=== PATIENT | female | born 1965 | race African-American/Black ===

== ENCOUNTER → 2016-06-10 | Outpatient (CLI) | payer OTHER ==
[2016-05-24 10:35] VITALS: BP 132/82
[~2016-06-10] MED LIST: ACET-704 PO; AMLO10TA2 PO; BARIUM SULFATE 60% 355 ML SUSP PO ONE; BARIUM SULFATE 98% 135 ML SUSP PO ONE; CHOL500016 PO; CITA20TA9 PO; CYCL10TA2 PO; DOXY100C14 PO; ESTR2TAB PO; FURO20TA3 PO; GUAI-42 PO; HYDR-2672 PO; HYDR25TA9 PO; IPRA3AMP NEB; LOSA100T6 PO; MELO-150 PO; MONT10TA9 PO; PRED-220 PO; PREG150C PO; RAMI10CA PO; SOTA120T7 PO; TIZA4TAB PO; TRAM50TA PO; [UNRECOGNIZED DRUG - CODE] IM
--- NOTE | 2016-06-10 11:45 | RAD ---
Upper GI with small bowel follow-through, 06/10/2016: History: Abdominal pain and reflux The preliminary abdominal image demonstrates a nonspecific gas pattern. Surgical sutures and clips are present in the abdomen. There is evidence of previous lower lumbar surgery and instrumentation. The study was performed utilizing liquid barium and gas-forming crystals. 2.8 minutes of fluoroscopy time was utilized. 21 static and dynamic fluoroscopic sequences were recorded. The swallowing mechanism is intact. The esophageal peristalsis is normal. There has been a previous partial gastrectomy with gastrojejunostomy. There is prompt passage of the barium through the anastomotic site into the small bowel. There is no evidence of marginal ulceration. The gastroesophageal junction is patulous with reflux of barium and gas in the distal esophagus during the study. The small bowel loops are of normal caliber with no evidence of thickening of their folds. There was prompt passage of the barium through the small bowel reaching the cecum at 20 minutes. The terminal ileum is unremarkable. IMPRESSION: 1. Status post partial gastrectomy and gastrojejunostomy. 2. Patulous gastroesophageal junction with intermittent reflux into the distal esophagus. 3. No significant small bowel abnormality is detected.
== END | disposition home or self-care (01) ==
LOC: RAD 08:32
PROVIDERS: ATTEND Internal Medicine Gastroenterology
DX: K21.9 Gastro-esophageal reflux disease without esophagitis (principal); R10.9 Unspecified abdominal pain; Z90.3 Acquired absence of stomach [part of]
CPT/HCPCS: 74249

== ENCOUNTER → 2016-10-06 | Outpatient (CLI) | payer OTHER ==
[2016-05-24 10:35] VITALS: BP 132/82
[~2016-10-06] MED LIST changes: -BARIUM SULFATE 60% 355 ML SUSP PO ONE; -BARIUM SULFATE 98% 135 ML SUSP PO ONE; +CYCL-331 PO; -CYCL10TA2 PO; +GUAI-107 PO; -GUAI-42 PO; -HYDR-2672 PO; +HYDR-2766 PO; -MELO-150 PO; +MELO15TA23 PO
--- NOTE | 2016-10-06 17:36 | RAD ---
Chest, 2 views, 10/06/2016: History: Shortness of breath, productive cough, congestion Comparison is made to a study from 05/22/2016. The left ventricle is mildly prominent. There are mild bilateral linear opacities which have worsened since the previous study. The findings suggest multifocal linear atelectasis, although there may be a component of scarring. No dense consolidation is seen. There is no evidence of pleural fluid. IMPRESSION: Moderate linear atelectasis in both lungs.
== END | disposition home or self-care (01) ==
LOC: DXRADRC 14:03
PROVIDERS: ATTEND Internal Medicine
DX: R05 Cough (principal); J98.11 Atelectasis; R09.89 Other specified symptoms and signs involving the circulatory and respiratory systems; R06.02 Shortness of breath
CPT/HCPCS: 71020

== ENCOUNTER → 2016-10-21 | Outpatient (CLI) | payer OTHER ==
[2016-05-24 10:35] VITALS: BP 132/82
--- NOTE | 2016-10-21 14:56 | RAD ---
CT scan of the head without contrast 10/21/2016 Clinical history: Vertigo for 6 months with headaches and disorientation. Technique: Unenhanced, contiguous, 5 mm axial sections were obtained through the head. One or more of the following individualized dose reduction techniques were utilized for this study: 1. Automated exposure control. 2. Adjustment of the mA and/or kV according to patient size. 3. Use of iterative reconstruction technique. Findings: The ventricles and sulci are within normal limits in size and configuration. No area of abnormal attenuation is involving the brain parenchyma. No extra-axial fluid collection is seen. No skull fracture is noted. Impression: Negative study.
== END | disposition home or self-care (01) ==
LOC: CT 14:06
PROVIDERS: ATTEND Internal Medicine
DX: R51 Headache (principal); J45.909 Unspecified asthma, uncomplicated; I10 Essential (primary) hypertension; I48.91 Unspecified atrial fibrillation; R25.1 Tremor, unspecified; R42 Dizziness and giddiness
CPT/HCPCS: 70450

== ENCOUNTER 2017-12-01 14:10 | Observation (INO) | payer OTHER ==
[~2017-12-01] VITALS: Ht 152.4 cm; Wt 117.7 kg
[~2017-12-01 14:10] MED LIST changes: -AMLO10TA2 PO; +AMLO10TA6 PO; -GUAI-107 PO; +GUAI-108 PO; -IPRA3AMP NEB; +IPRA3AMP29 NEB; -LOSA100T6 PO; +LOSA100T7 PO; -RAMI10CA PO; +RAMI10CA53 PO
[2017-12-01] MEDS ORDERED: IV NORMAL SALINE 1,000ML 1,000 ML IV ONE ×2 (14:45→18:45)
[2017-12-01] MEDS ORDERED: HALOPERIDOL LACT 5 MG/ML VIAL. IM ONE (15:00)
--- NOTE | 2017-12-01 15:07 | PHYS DOC ---
Past History Past Medical History: A-Fib, Hypertension, Other Past Surgical History: , Gastric Bypass, Hysterectomy, Lumbar Laminectomy, Other Alcohol Use: None Drug Use: None Adult General Chief Complaint Chief Complaint: ALTERED MENTAL STATUS HPI HPI 52-year-old female presents via EMS with altered mental status. The patient was at her house where the police department was called. She stated that someone hacked into her cable and was watching her. The police found no problems with her cable. They discovered that the patient was not alert and oriented so they called EMS. EMS found the patient to not be oriented either. She has been having swings between being very angry and yelling about things to crying. Her speech is coherent, but the thing she is talking about does not of his neck since. EMS reported that she seemed to be paranoid about any interventions they wanted to do. She denies being crazy over no rebound. She complains of some left upper arm pain but will not allow anyone to touch it. She is unable to provide medical history or history of today's events. Review of Systems Review of Systems Constitutional: Denies fever or chills [] Eyes: Denies change in visual acuity, redness, or eye pain [] HENT: Denies nasal congestion or sore throat [] Respiratory: Denies cough or shortness of breath [] Cardiovascular: No additional information not addressed in HPI [] GI: Denies abdominal pain, nausea, vomiting, or diarrhea [] : Denies dysuria [] Musculoskeletal: Left upper arm pain[] Integument: Denies rash[] Neurologic: Denies headache, focal weakness or sensory changes [] Endocrine: Denies polyuria [] All other systems were reviewed and found to be within normal limits, except as documented in this note. Current Medications Current Medications Current Medications Medications (Trade) Dose Ordered Sig/Jessica Start Time Stop Time Status Last Admin Dose Admin Haloperidol Lactate (Haldol) 5 mg 1X ONCE 12/01/17 15:00 12/01/17 15:01 Sodium Chloride 1,000 ml @ 1,000 mls/hr 1X ONCE 12/01/17 14:45 12/01/17 15:44 Allergies Allergies Allergies Coded Allergies Type Severity Reaction Last Updated Verified adhesive Allergy Unknown 06/15/15 Yes adhesive tape Allergy Unknown 06/15/15 Yes latex Allergy Unknown 06/15/15 Yes propoxyphene Allergy Unknown 06/15/15 Yes Physical Exam Physical Exam Constitutional: Well developed, obese, well nourished, moderate distress, crying , yelling, non-toxic appearance. [] HENT: Normocephalic, atraumatic, bilateral external ears normal, oropharynx moist, no oral exudates, nose normal. [] Eyes: PERRLA, EOMI, conjunctiva normal, no discharge. [] Neck: Normal range of motion, no tenderness, supple, no stridor. [] Cardiovascular:Heart rate regular rhythm, no murmur [] Lungs & Thorax: Bilateral breath sounds clear to auscultation [] Abdomen: Bowel sounds normal, soft, no tenderness, no masses, no pulsatile masses. [] Skin: Warm, dry, no erythema, no rash. [] Back: No tenderness, no CVA tenderness. [] Extremities: No tenderness, no cyanosis, no clubbing, ROM intact, no edema. [] Neurologic: Alert and oriented to person and place only, no focal deficits noted. [] Psychologic: Affect paranoid, mood agitated, crying. [] Current Patient Data Vital Signs Vital Signs Date Time Temp Pulse Resp B/P (MAP) Pulse Ox O2 Delivery O2 Flow Rate FiO2 12/01/17 14:14 98.2 78 20 97 Room Air EKG EKG [] Radiology/Procedures Radiology/Procedures CT of the head without contrast, 12/01/2017: HISTORY: Altered mental status, combative behavior The patient's head is rotated. The ventricles are within normal limits in size. There is no shift of the midline structures. There is no evidence of acute intracranial hemorrhage or mass effect. IMPRESSION: No acute intracranial abnormality is detected. RS Compliance Statement: One or more of the following individualized dose reduction techniques were utilized for this examination: 1. Automated exposure control 2. Adjustment of the mA and/or kV according to patient size 3. Use of iterative reconstruction technique Electronically signed by: Patrice Currie MD (12/01/2017 5:10 PM) [facility] DICTATED AND SIGNED BY: PATRICE CURRIE MD DATE: 12/01/17 7547 CC: SHARON AVILA DO; RHIANNA STACY DO [] Course & Med Decision Making Course & Med Decision Making Pertinent Labs and Imaging studies reviewed. (See chart for details) The patient's head CT is unremarkable. Her labs are unremarkable. Her urine drug screen is only positive for opiates which we know she is on pain medication. Urinalysis is unremarkable. We have had conversations with the patient's family and they agree that she does not sound like herself and is very out of sorts. She has no mental health history. I do not have a cause for her delirium at this time. Family arrived and continues to be baffled by the patient's behavior. The patient is now sleeping soundly. This is likely due to a combination of just being worn out from being so agitated and the medications that we gave her. He has been stable throughout her ED visit. I discussed the case with Dr. Calderon and he has agreed to admit the patient for acute delirium. [] Dragon Disclaimer Dragon Disclaimer This electronic medical record was generated, in whole or in part, using a voice recognition dictation system. Departure Departure: Referrals: RHIANNA STACY DO (PCP) SHARON AVILA DO Dec 01, 2017 15:07
[2017-12-01] MEDS ORDERED: LORazepam 2 MG/ML VIAL IM ONE ×2 (15:15)
[2017-12-01 15:49] LABS: BASO # 0.1 x10^3/uL (0.0-0.2); BASO % 1 % (0-3); EOS # 0.2 x10^3/uL (0.0-0.7); EOS % 2 % (0-3); HEMATOCRIT 36.4 % (36.0-47.0); HEMOGLOBIN 11.7 g/dL (12.0-15.5); LYMPH # 1.7 x10^3/uL (1.0-4.8); LYMPH % 19 % (24-48); MEAN CORPUSCULAR HEMOGLOBIN 27 pg (25-35); MEAN CORPUSCULAR HGB CONC 32 g/dL (31-37); MEAN CORPUSCULAR VOLUME 83 fL (79-100); MONO # 0.4 x10^3/uL (0.0-1.1); MONO % 4 % (0-9); NEUT # 6.8 x10^3uL (1.8-7.7); NEUT % 74 % (31-73); PLATELET COUNT 361 x10^3/uL (140-400); RED BLOOD COUNT 4.39 x10^6/uL (3.50-5.40); WHITE BLOOD COUNT 9.2 x10^3/uL (4.0-11.0)
[2017-12-01 16:01] LABS: ALBUMIN 3.1 g/dL (3.4-5.0); ALBUMIN/GLOBULIN RATIO 0.6 (1.0-1.7); CALCIUM 9.4 mg/dL (8.5-10.1); CREATININE 1.3 mg/dL (0.6-1.0); GFR 51.6; POTASSIUM 3.7 mmol/L (3.5-5.1); TOTAL BILIRUBIN 0.4 mg/dL (0.2-1.0); TOTAL PROTEIN 8.3 g/dL (6.4-8.2)
[2017-12-01 17:01] LABS: BACTERIA,URINE FEW /HPF (0-FEW); BILIRUBIN,URINE NEG (NEG); CLARITY,URINE HAZY; COLOR,URINE YELLOW; GLUCOSE,URINE NEG (NEG); NITRITE,URINE NEG (NEG); RBC,URINE 0 /HPF (0-2); SQUAMOUS EPITHELIAL CELL,UR MANY /LPF; UROBILINOGEN,URINE 0.2 mg/dL (0.2 mg/dL); WBC,URINE RARE /HPF (0-4)
[2017-12-01 17:13] LABS: BARBITURATES NEG (NEG); BENZODIAZEPINES NEG (NEG); CANNABINOIDS NEG (NEG); COCAINE NEG (NEG); METHADONE NEG (NEG); OPIATES POS (NEG); PHENCYCLIDINE NEG (NEG)
--- NOTE | 2017-12-01 17:13 | RAD ---
CT of the head without contrast, 12/01/2017: HISTORY: Altered mental status, combative behavior The patient's head is rotated. The ventricles are within normal limits in size. There is no shift of the midline structures. There is no evidence of acute intracranial hemorrhage or mass effect. IMPRESSION: No acute intracranial abnormality is detected. RS Compliance Statement: One or more of the following individualized dose reduction techniques were utilized for this examination: 1. Automated exposure control 2. Adjustment of the mA and/or kV according to patient size 3. Use of iterative reconstruction technique Electronically signed by: Patrice Currie MD (12/01/2017 5:10 PM) [facility]
[2017-12-01 17:15] LABS: AMPHETAMINE/METHAMPHETAMINE NEG (NEG)
[2017-12-01] MEDS ORDERED: ONDANSETRON PF 4 MG/2 ML VIAL. IV PRN (18:45)
[2017-12-01] MEDS ORDERED: HALOPERIDOL LACT 5 MG/ML VIAL. IM PRN (18:45)
[2017-12-01 23:27] VITALS: BP 107/56
[2017-12-02 03:14] VITALS: BP 124/57
[2017-12-02 06:24] LABS: CALCIUM 8.9 mg/dL (8.5-10.1); CREATININE 0.9 mg/dL (0.6-1.0); POTASSIUM 3.9 mmol/L (3.5-5.1)
[2017-12-02 06:44] LABS: BASO # 0.1 x10^3/uL (0.0-0.2); BASO % 1 % (0-3); EOS # 0.2 x10^3/uL (0.0-0.7); EOS % 3 % (0-3); HEMATOCRIT 33.8 % (36.0-47.0); HEMOGLOBIN 10.9 g/dL (12.0-15.5); LYMPH # 2.1 x10^3/uL (1.0-4.8); LYMPH % 29 % (24-48); MEAN CORPUSCULAR HEMOGLOBIN 27 pg (25-35); MEAN CORPUSCULAR HGB CONC 32 g/dL (31-37); MEAN CORPUSCULAR VOLUME 83 fL (79-100); MONO # 0.5 x10^3/uL (0.0-1.1); MONO % 7 % (0-9); NEUT # 4.3 x10^3uL (1.8-7.7); NEUT % 60 % (31-73); PLATELET COUNT 328 x10^3/uL (140-400); RED BLOOD COUNT 4.09 x10^6/uL (3.50-5.40); RED CELL DISTRIBUTION WIDTH 16.5 % (11.5-14.5); WHITE BLOOD COUNT 7.2 x10^3/uL (4.0-11.0)
[2017-12-02 07:00] VITALS: BP 118/61
[2017-12-02] MEDS ORDERED: HYDR-2762 PO (09:52)
[2017-12-02] MEDS ORDERED: DULO60CA6 PO (09:52)
[2017-12-02] MEDS ORDERED: ROFL500T7 PO (09:52)
[2017-12-02] MEDS ORDERED: OMEP40CA5 PO (09:52)
[2017-12-02] MEDS ORDERED: AMLO10TA4 PO (09:52)
[2017-12-02 11:00] VITALS: BP 129/71
[2017-12-02] MEDS ORDERED: CYCL-331 PO (11:16)
[2017-12-02] MEDS ORDERED: IPRATRPIUM/ALBUTEROL 0.5/2.5MG 3 ML NEBU. NEB PRN (13:15)
[2017-12-02] MEDS: FUROSEMIDE 20 MG TABLET PO SCH (13:25)
[2017-12-02] MEDS: CITALOPRAM 20 MG TABLET. PO SCH (13:25)
[2017-12-02] MEDS: DULoxetine HCL 60 MG CAPSULE.DR PO SCH (13:26)
[2017-12-02] MEDS: PREGABALIN 50 MG CAPSULE PO SCH ×2 (13:27→22:11)
[2017-12-02] MEDS ORDERED: LOSARTAN 50 MG TABLET. PO SCH (13:30)
--- NOTE | 2017-12-02 13:41 | HP ---
ADMIT DATE: 12/01/2017 HISTORY OF PRESENT ILLNESS: The patient is a 52-year-old -[place] female patient who was brought to the Emergency Room by emergency medical services with altered mental status. The patient was at her house when the Police Department was called. She stated that someone hacked into her cable and was watching her. The police found no problems with her cable. They discovered that the patient was not alert and oriented and EMS was called who in turn found the patient not to be oriented either. She has been having swings between being very angry and yelling about things to crying. Her speech is coherent, but the thing she is talking about does not make sense. The EMS personnel reported that she seemed to be paranoid about any intervention they wanted to do. She stated that she has pain in her left upper extremity and apparently was seen by her primary care physician who gave her medication with the label handwritten and all the medication were mixed in the same bottle. She was basically admitted to the ICU for observation, although the patient was not suicidal or homicidal and to consult Dr. Barillas for this new onset of acute psychosis. PAST MEDICAL HISTORY: Significant for hypertension, atrial fibrillation, chronic kidney disease, morbid obesity, obstructive sleep apnea, bronchial asthma, osteoarthritis, fibromyalgia. He has also had an episode of malignant hyperthermia. She said that she has also severe pain in her left neck radiating to left upper extremity. PAST SURGICAL HISTORY: Significant for gastric bypass surgery in 2004. At that time, she lost about 135 pound. She underwent a , laparoscopy, total abdominal hysterectomy, bilateral salpingo-oophorectomy, back surgery twice. She has also left knee arthroscopic surgery. ALLERGIES: She is allergic to DARVOCET, LATEX, ADHESIVE TAPE, adhesive generally. MEDICATION: She gets her medication from [facility] and also [facility]. FAMILY HISTORY: She has 4 brothers and 4 sisters. All of her siblings have hypertension. Her father is alive at the age of 87 and he is known to have hypertension and diabetes. Mother is alive at the age of 86 and is known to have hypertension. SOCIAL HISTORY: She is , lives on her own. She has 1 son who lives with her for 1 week and with her father 1 week. She never smoked. Does not drink alcohol or use any recreational drugs. 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 She is currently on disability. PHYSICAL EXAMINATION: GENERAL: On arrival to the Emergency Room, the patient looked well and was clearly in no apparent respiratory distress. Slightly pale, but no jaundice, cyanosis, or thyromegaly. No jugular venous distention. No limb edema. VITAL SIGNS: Her heart rate was 78, blood pressure was 135/76, temperature was 98.2, respiratory rate 20, and oxygen saturation was 97%. HEAD, EYES, EARS, NOSE, AND THROAT: Showed she is normocephalic, atraumatic. NECK: Supple. HEART: Showed normal first and second heart sounds with no gallop, rub, or murmur. CHEST: Clear to auscultation. No crepitation or rhonchi. ABDOMEN: Distended, soft, nontender. NEUROLOGIC: She was awake, alert, but clearly very paranoid. She was apparently yelling, combative, although she was mostly in her bed according to the ER physician. All her cranial nerves are intact. She moves her extremities without difficulty. LABORATORY DATA: While in the Emergency Room, she has had lab work done, which showed white cell count of 9200, hemoglobin 11.7, hematocrit 36.4, MCV 83, and platelet count was 361,000 with normal manual differential. Her chemistry showed serum sodium 140, potassium 3.7, chloride 100, bicarbonate 34, anion gap of 6, BUN 15, creatinine 1.3, estimated GFR was 51 mL per minute. Her glucose was 103, calcium was 9.4. Total bilirubin, AST, ALT were normal. Alkaline phosphatase was slightly elevated. Total protein was 8.3, albumin was 3.1. Her urinalysis showed the urine was yellow, hazy with a pH of 7, specific gravity of 1.010. The urine was negative for protein, glucose, ketones, blood, nitrite and her leukocyte esterase was negative and there are no rbc's, rare wbc's and very few bacteria. Her urine tox screen was positive for opiates, but negative for methadone, barbiturates, phencyclidine, amphetamine, methamphetamine, benzodiazepine, cocaine, cannabinoid, and ethyl alcohol. Her CT scan of the head showed that the ventricles are within normal limits in size. There is no shift of midline structures. There is no evidence of acute intracranial hemorrhage or mass effect. ASSESSMENT AND PLAN: The patient was admitted with acute psychosis. The patient was extremely paranoid, which is apparently something new that she has never had this before. We will contact her primary care physician and her pharmacy to find out exactly what medications that she was started and consult Dr. Barillas. DEACON LAM MD DR: SHRADDHA/alberta JOB#: [id number] / [id number]
[2017-12-02] MEDS ORDERED: ACETAMINOPHEN 325 MG TABLET PO PRN (14:15)
[2017-12-02 15:00] VITALS: BP 140/87
[2017-12-02] MEDS: amLODIPine BESYLATE 10 MG TABLET PO SCH (16:03)
[2017-12-02] MEDS: PANTOPRAZOLE 40 MG TABLET. PO SCH (17:22)
[2017-12-02] MEDS: ROFLUMILAST 500 MCG TABLET PO SCH (17:22)
[2017-12-02] MEDS: ESTRADIOL 1 MG TABLET PO SCH (17:23)
[2017-12-02] MEDS: SOTALOL 120 MG PO SCH ×2 (17:23→21:00)
[2017-12-02 20:25] VITALS: BP 114/70
[2017-12-02] MEDS ORDERED: MONTELUKAST 10 MG TABLET. PO SCH (21:00)
[2017-12-02] MEDS: HYDROcodone/APAP 10/325 1 TAB TABLET PO PRN (22:12)
[2017-12-02 22:57] VITALS: BP 118/77
[2017-12-03] MEDS: HYDROcodone/APAP 10/325 1 TAB TABLET PO PRN (02:27)
[2017-12-03 05:09] VITALS: BP 117/74
[2017-12-03] MEDS: FUROSEMIDE 20 MG TABLET PO SCH (08:38)
[2017-12-03] MEDS: DULoxetine HCL 60 MG CAPSULE.DR PO SCH (08:39)
[2017-12-03] MEDS: amLODIPine BESYLATE 10 MG TABLET PO SCH (08:39)
[2017-12-03] MEDS: PANTOPRAZOLE 40 MG TABLET. PO SCH (08:40)
[2017-12-03] MEDS: ROFLUMILAST 500 MCG TABLET PO SCH (08:40)
[2017-12-03] MEDS: SOTALOL 120 MG PO SCH (08:40)
[2017-12-03] MEDS: ESTRADIOL 1 MG TABLET PO SCH (08:40)
[2017-12-03] MEDS: CITALOPRAM 20 MG TABLET. PO SCH (08:40)
[2017-12-03] MEDS: PREGABALIN 50 MG CAPSULE PO SCH (08:40)
[2017-12-03 11:03] VITALS: BP 116/75
--- NOTE | 2017-12-03 13:27 | PDOC ---
Exam Note: Jimbo Note: Please also refer to the separate dictated note~for this date of service dictated separately.~Patient seen individually. Discussed the patient with Nursing staff reviewed the chart.~Reviewed interim history and current functioning. Reviewed vital signs,~Labs/ Radiology~and current medications noted below. Continue current treatment with the changes noted in the dictated addendum note. Late entry for Nov Assessment: Vital Signs: VS - Last 72 Hours, by Label Date Time Temp Pulse Resp B/P (MAP) Pulse Ox O2 Delivery O2 Flow Rate FiO2 12/03/17 11:03 97.4 72 20 116/75 (89) 99 Room Air 12/03/17 08:40 70 117/74 12/03/17 08:39 70 117/74 12/03/17 08:00 Room Air 12/03/17 05:09 97.7 70 18 117/74 (88) 98 Nasal Cannula 2.0 12/03/17 03:27 18 Room Air 2.0 12/03/17 02:27 18 Nasal Cannula 2.0 12/02/17 22:57 98.3 84 20 118/77 (91) 95 Nasal Cannula 2.0 12/02/17 22:12 18 Nasal Cannula 2.0 12/02/17 20:25 98.8 91 20 114/70 (85) 90 Room Air 12/02/17 19:45 Room Air 12/02/17 17:23 109 140/87 12/02/17 16:03 109 140/87 12/02/17 15:00 109 140/87 (104) 94 Room Air 12/02/17 13:25 110 129/71 12/02/17 11:00 110 129/71 (90) 93 Room Air 12/02/17 07:00 98.3 103 118/61 (80) 93 Room Air 12/02/17 04:09 Room Air 12/02/17 03:14 98.3 82 20 124/57 (79) 92 Room Air 12/01/17 23:27 98.1 76 16 107/56 (73) 100 Room Air 12/01/17 21:30 Room Air 12/01/17 19:36 68 18 137/104 (115) 98 Room Air 12/01/17 17:01 67 18 143/68 (93) 98 Room Air 12/01/17 16:43 67 18 142/67 (92) 98 Room Air 12/01/17 15:41 65 18 135/76 (95) 98 Room Air 12/01/17 14:14 98.2 78 20 97 Room Air Vital Signs Date Time Temp Pulse Resp B/P (MAP) Pulse Ox O2 Delivery O2 Flow Rate FiO2 12/03/17 11:03 97.4 72 20 116/75 (89) 99 Room Air 12/03/17 05:09 2.0 I&O Intake and Output 12/03/17 07:00 Intake Total 600 ml Balance 600 ml Intake Oral 600 ml # Voids 5 # Bowel Movements 2 Current Medications: Meds: Current Medications Haloperidol Lactate (Haldol) 5 mg 1X ONCE IM Last administered on 12/01/17at 15 :06; Start 12/01/17 at 15:00; Stop 12/01/17 at 15:01; Status DC Sodium Chloride 1,000 ml @ 1,000 mls/hr 1X ONCE IV ; Start 12/01/17 at 14:45; Stop 12/01/17 at 15:44; Status DC Lorazepam (Ativan) 5 mg 1X ONCE IM ; Start 12/01/17 at 15:15; Stop 12/01/17 at 15:15; Status DC Lorazepam (Ativan) 4 mg 1X ONCE IM Last administered on 12/01/17at 15:28; Start 12/01/17 at 15:15; Stop 12/01/17 at 15:16; Status DC Ondansetron HCl (Zofran) 4 mg PRN Q4HRS PRN IV NAUSEA/VOMITING; Start 12/01/17 at 18:45; Stop 12/02/17 at 18:44; Status DC Sodium Chloride 1,000 ml @ 75 mls/hr 1X ONCE IV Last administered on at 23:04; Start 12/01/17 at 18:45; Stop 12/02/17 at 08:04; Status DC Haloperidol Lactate (Haldol) 5 mg PRN 1X PRN IM aggitation; Start 12/01/17 at 18:45 Citalopram Hydrobromide (CeleXA) 20 mg DAILY PO Last administered on 12/03/17at 08:40; Start 12/02/17 at 13:30 Furosemide (Lasix) 40 mg DAILY PO Last administered on 12/03/17at 08:38; Start 12/02/17 at 13:30 Albuterol/ Ipratropium (Duoneb) 3 ml PRN Q4HRS PRN NEB COUGH; Start 12/02/17 at 13:15 Amlodipine Besylate (Norvasc) 10 mg DAILY PO Last administered on 12/03/17 08: 39; Start 12/02/17 at 13:30 Vitamin D (Vitamin D3) 50,000 unit WEEKLY PO ; Start 12/09/17 at 09:00 Duloxetine HCl (Cymbalta) 60 mg DAILY PO Last administered on 12/03/17 08:39; Start 12/02/17 at 13:30 Estradiol (Estrace) 2 mg DAILY PO Last administered on 12/03/17 08:40; Start 12/02/17 at 13:30 Losartan Potassium (Cozaar) 100 mg DAILY PO Last administered on 12/02/17 13: 25; Start 12/02/17 at 13:30 Montelukast Sodium (Singulair) 10 mg QHS PO Last administered on 12/02/17 22: 12; Start 12/02/17 at 21:00 Pantoprazole Sodium (Protonix) 40 mg DAILYAC PO Last administered on 12/03/17 08:40; Start 12/02/17 at 13:30 Pregabalin (Lyrica) 150 mg BID PO Last administered on 12/03/17 08:40; Start 12/02/17 at 13:30 Roflumilast (Daliresp) 500 mcg DAILY PO Last administered on 12/03/17 08:40; Start 12/02/17 at 13:30 Sotalol HCl (Betapace) 120 mg BID PO Last administered on 12/03/17 08:40; Start 12/02/17 at 13:30 Acetaminophen (Tylenol) 650 mg PRN Q8HRS PRN PO PAIN Last administered on 16:04; Start 12/02/17 at 14:15 Acetaminophen/ Hydrocodone Bitart (Lortab 10/325) 1 tab PRN Q4HRS PRN PO PAIN Last administered on 12/03/17 02:27; Start 12/02/17 at 22:00 Active Scripts Active Prednisone 10 Mg Tablet 40 Mg PO DAILY 40 MGX2, 30 MGX2, 20 MG X2, 10 MGX2 Mucinex Dm Er 600-30 Mg Tablet (Guaifenesin/Dextromethorphan) 1 Each Tab.er.12h 1 Tab PO BID Montelukast Sodium Tablet (Montelukast Sodium) 10 Mg Tablet 10 Mg PO QHS Reported Hydrocodone-Apap 7.5-325 (Hydrocodone Bit/Acetaminophen) 1 Each Tablet 1 Tab PO PRN Q6HRS PRN Cymbalta (Duloxetine Hcl) 60 Mg Capsule. 1 Cap PO DAILY Daliresp (Roflumilast) 500 Mcg Tablet 1 Tab PO DAILY Omeprazole 40 Mg Capsule.dr 1 Cap PO DAILY Norvasc (Amlodipine Besylate) 10 Mg Tablet 1 Tab PO DAILY Furosemide 20 Mg Tablet 2 Tab PO DAILY LAST DOSE GIVEN: DATE: TIME: NEXT DOSE DUE: DATE: TOMORROW TIME: IN THE MORNING Hydrocodone-Apap 10-325 (Hydrocodone Bit/Acetaminophen) 1 Each Tablet 1 Tab PO Q4HRS PRN LAST DOSE GIVEN: DATE: TIME: NEXT DOSE DUE: DATE: IF AND WHEN NEEDED TIME: Duoneb 0.5-3(2.5) Mg/3 Ml (Albuterol/Ipratropium) 3 Ml Ampul.neb 3 Ml NEB Q4HRS PRN LAST DOSE GIVEN: DATE: TIME: NEXT DOSE DUE: DATE: IF AND WHEN NEEDED TIME: Cyclobenzaprine Hcl 10 Mg Tablet 1 Tab PO TID PRN LAST DOSE GIVEN: DATE: TIME: NEXT DOSE DUE: DATE: IF AND WHEN NEEDED TIME: Lyrica (Pregabalin) 150 Mg Capsule 150 Mg PO BID LAST DOSE GIVEN: DATE: TIME: NEXT DOSE DUE: DATE: TONIGHT TIME: AT 9PM Celexa (Citalopram Hydrobromide) 20 Mg Tablet 20 Mg PO DAILY LAST DOSE GIVEN: DATE: TIME: NEXT DOSE DUE: DATE: TOMORROW TIME: IN THE MORNING Sotalol Af (Sotalol Hcl) 120 Mg Tablet 120 Mg PO BID LAST DOSE GIVEN: DATE: TIME: NEXT DOSE DUE: DATE: TONIGHT TIME: AT 9PM Estradiol 2 Mg Tablet 2 Mg PO DAILY LAST DOSE GIVEN: DATE: TIME: NEXT DOSE DUE: DATE: TOMORROW TIME: IN THE MORNING Tramadol Hcl (Tramadol HCl) 50 Mg Tablet 50 Mg PO Q4HRS PRN LAST DOSE GIVEN: DATE: TIME: NEXT DOSE DUE: DATE: WHEN AND IF NEEDED TIME: Vitamin D3 (Cholecalciferol (Vitamin D3)) 5,000 Unit Tablet 50,000 Unit PO WEEKLY LAST DOSE GIVEN: DATE: TIME: NEXT DOSE DUE: DATE: ON WEDNESDAY TIME: Losartan Potassium 100 Mg Tablet 100 Mg PO DAILY LAST DOSE GIVEN: DATE: TIME: NEXT DOSE DUE: DATE: TOMORROW TIME: IN THE MORNING Amlodipine Besylate 10 Mg Tablet 5 Mg PO DAILY LAST DOSE GIVEN: DATE: TIME: NEXT DOSE DUE: DATE: TOMORROW TIME: IN THE MORNING I have reviewed the current psychotropics carefully including drug interactions. Risk benefit ratio favors no change other than as noted in my dictated progress note. Diagnosis: Problems: (1) Anxiety disorder (2) Delirium due to general medical condition (3) Impulse control disorder URSULA PENALOZA MD Dec 03, 2017 13:27
--- NOTE | 2017-12-03 20:05 | DS ---
DATE OF DISCHARGE: 12/03/2017 HOSPITAL COURSE: The patient is a 52-year-old -[place] female patient who was admitted with acute psychosis. The patient was extremely paranoid, delusional, has called the police as she felt that somebody is hacking into her cable and was watching her. She was completely disoriented and confused and apparently was seen recently for severe pain in her neck radiating to her left arm and was given for some reason baclofen and Flexeril mixed in 1 bottle with hand written label by her primary care physician. She apparently took baclofen and after that she developed this acute mental status changes. She was extensively investigated. All her lab works are within acceptable range. When I saw her today, she was awake, alert, oriented to time, place and person. She remembers bits and pieces of what happened, but she is back to her normal self. She has eaten her breakfast, has been up and about, walked with physical therapy and basically she remained stable hemodynamically. Neurologically, she is intact. She has no further episodes of evidence of paranoia. A decision was made to discharge her home with the advice not to accept any drug samples unless they are clearly labeled in separate bottles ____ and only take prescriptions. PHYSICAL EXAMINATION: GENERAL: When I examined her, she looked well and was clearly in no apparent respiratory distress, pale, no jaundice, cyanosis, or thyromegaly. No jugular venous distension. No limb edema. VITAL SIGNS: Her heart rate was 72, blood pressure was 116/75, temperature was 97.4, respiratory rate 20, and oxygen saturation was 99% on room air. HEAD, EYES, EARS, NOSE AND THROAT: Normocephalic, atraumatic. NECK: Supple. HEART: Showed normal first and second heart sounds. No gallop, rub or murmur. CHEST: Clear to auscultation. No crepitation or rhonchi. ABDOMEN: Distended, soft, nontender. No guarding or rigidity. No organomegaly. All hernial orifices intact. Bowel sounds normal. NEUROLOGIC: She was awake, alert, responding appropriately. Cranial nerves intact. EXTREMITIES: She moves extremities without difficulty. She ambulates without assistance or assistive devices. LABORATORY DATA: Her lab work this morning showed a white cell count 7200, hemoglobin 11, hematocrit 33, MCV 83, and platelet count of 328,000. Her serum sodium was 141, potassium 3.9, chloride 104, bicarbonate 27, anion gap of 10, BUN 10, creatinine 0.9, estimated GFR was 79 mL per minute. Her glucose was 79 and calcium was 8.9. MEDICATIONS: She was discharged home to continue on her amlodipine 10 mg once a day, cholecalciferol for vitamin D 5000 international units once a day, citalopram hydrobromide 20 mg daily, Flexeril 10 mg 3 times a day, duloxetine for Cymbalta 60 mg once a day, estradiol 2 mg daily, furosemide 40 mg once a day, guaifenesin/dextromethorphan Mucinex DM 1 tablet twice a day, hydrocodone/APAP 10/325 one tablet every 4 hours, ipratropium bromide and albuterol sulfate for DuoNeb by nebulizer every 4 hours, losartan potassium 100 mg once a day, montelukast 10 mg at bedtime, omeprazole 40 mg daily, prednisone 40 mg daily, pregabalin for Lyrica 150 mg twice a day, Daliresp 500 mcg tablet once a day, sotalol 120 mg twice a day and tramadol 50 mg every 4 hours. FINAL DISCHARGE DIAGNOSES: Acute psychosis. Other medical problems include hypertension, atrial fibrillation, chronic kidney disease, morbid obesity, obstructive sleep apnea, bronchial asthma, osteoarthritis. DEACON LAM MD DR: SHRADDHA/[place] JOB#: [id number] / [id number]
--- NOTE | 2017-12-03 22:58 | CONS ---
DATE OF CONSULTATION: 12/02/2017 PSYCHIATRIC CONSULTATION This late entry for 12/02/2017 covers elements not covered in my initial note SUMMARY OF PROGRESS: I met with the patient evening of 12/02/2017 and also her son and ex- were in the room with her. Discussed with nursing staff, reviewed the chart. CHIEF COMPLAINT: "I am better now." HISTORY OF PRESENT ILLNESS: The patient is a 52-year-old -[place] female brought to the Emergency Room by EMS with altered mental status. She states she was at home when police were called. She felt someone hacked into her cable and was watching her. She is quite psychotic. The police found no problems with the cable. They found, the patient was not alert or oriented. EMS was called who confirmed this and then brought her to the ER. She has been having mood swings with periods of being very angry, yelling about things to crying. The patient states she was recently prescribed Baclofen and feels this may have contributed to her mental status changes. On admission, speech was coherent, rapid, but thought processes were disorganized with loose associations. The patient was noted by EMS to be paranoid. I met with her in room 107, [facility]. By the time I met with her evening of 12/02/2017 per nursing report and the patient herself, her mental status was clearing up significantly. PAST PSYCHIATRIC HISTORY: The patient denies any past psychiatric problems whatsoever and does state she has never seen a psychiatrist. PAST MEDICAL HISTORY: Hypertension, atrial fibrillation, chronic kidney disease, obesity, obstructive sleep apnea, asthma, osteoarthritis, fibromyalgia. She has had episodes of malignant hyperthermia, has severe pain in the left neck radiating to left upper extremity. PAST SURGICAL HISTORY: Gastric bypass in 2004. She lost 135 pounds at that time. She underwent , laparoscopic total abdominal hysterectomy, bilateral salpingo-oophorectomy, back surgery twice. She has also had left knee arthroscopic surgery. ALLERGIES: DARVOCET, LATEX, ADHESIVE TAPE. FAMILY HISTORY: She has 4 brothers, 4 sisters, all with hypertension. Father alive at 87 and has hypertension, diabetes mellitus. Mother is 86 with hypertension. SOCIAL HISTORY: She is , lives on her own. She has 1 son who lives with her for one week and then with the father. She is not a smoker. No alcohol or drug abuse. 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 CURRENT PSYCHOTROPICS: Duloxetine 60 mg a day, which was discontinued at admission, Celexa 20 mg a day, which was also discontinued. MENTAL STATUS EXAM: The patient was seen individually evening of 12/02/2017. By the time I met with her, she was much more awake, alert. She knew she was in the hospital, was aware of the date and time, knew approximately how long she had been here. Speech coherent. Thought processes goal directed. Mood is somewhat anxious. She is distractible. No active hallucinations. No suicidal or homicidal ideation. Thought processes appear goal directed. IMPRESSION: History of major depressive disorder in partial remission, delirium due to general medical condition, possibly/probably secondary to a drug reaction, maybe to baclofen from the patient's history. Rest as above. PLAN: No further recommendations from a psychiatric standpoint. It is best to keep her off all psychotropics for now and once she is medically stable; and otherwise, cleared up from a cognitive standpoint, she may restart Cymbalta at 20 mg a day and increasing gradually and avoid the Celexa and not use them in combination. Dr. Calderon, thank you for the opportunity to participate in your patient's care. We will follow with you. URSULA PENALOZA MD DR: STEPHANIE/[place] JOB#: [id number] / [id number]
[2017-12-09] MEDS ORDERED: CHOLECALCIFEROL (VITAMIN D3) 50,000 UNIT CAPSULE PO SCH (09:00)
== END 2017-12-03 13:26 | disposition home or self-care (01) ==
LOC: ER 14:10 → ICU 19:00 → INTOOBSV 19:00 → 1 SOUTH 12-02 17:47
PROVIDERS: ADMIT Internal Medicine; ATTEND Internal Medicine
DX: F29 Unspecified psychosis not due to a substance or known physiological condition (principal); R41.82 Altered mental status, unspecified; E66.01 Morbid (severe) obesity due to excess calories; F05 Delirium due to known physiological condition; F41.9 Anxiety disorder, unspecified; N18.9 Chronic kidney disease, unspecified; I48.91 Unspecified atrial fibrillation; I12.9 Hypertensive chronic kidney disease with stage 1 through stage 4 chronic kidney disease, or unspecified chronic kidney disease; J45.909 Unspecified asthma, uncomplicated; M19.90 Unspecified osteoarthritis, unspecified site; G47.33 Obstructive sleep apnea (adult) (pediatric); Z82.49 Family history of ischemic heart disease and other diseases of the circulatory system; Z83.3 Family history of diabetes mellitus; Z90.710 Acquired absence of both cervix and uterus; Z98.891 History of uterine scar from previous surgery; Z98.84 Bariatric surgery status
CPT/HCPCS: 36415; 70450; 80048; 80053; 80307; 81001; 85025; 87641; 96372; 97162; 97165; 99285; G0378; J1630; J2060; G0379; G0479; J7030

== ENCOUNTER 2017-12-26 10:33 | Emergency (ER) | payer OTHER ==
[~2017-12-26] VITALS: Ht 149.9 cm; Wt 111.1 kg
[~2017-12-26 10:33] MED LIST changes: +AMLO10TA4 PO; +DULO60CA6 PO; +HYDR-2762 PO; +OMEP40CA5 PO; +ROFL500T7 PO
[2017-12-26] MEDS ORDERED: IOHEXOL 300 MG/ML 75 ML VIAL. IV ONE (11:15)
[2017-12-26] MEDS ORDERED: LIDOCAINE 2% VISCOUS 15 ML SOLUTION. SWSW ONE (11:15)
[2017-12-26] MEDS ORDERED: MORPHINE SULFATE 4 MG/ML DISP.SYRIN. IM ONE (13:00)
--- NOTE | 2017-12-26 13:35 | PHYS DOC ---
Past History Past Medical History: A-Fib, Hypertension, Other Past Surgical History: , Gastric Bypass, Hysterectomy, Lumbar Laminectomy, Other Alcohol Use: None Drug Use: None Adult General Chief Complaint Chief Complaint: FOREIGN BODY HPI HPI Patient is a 52] year old female who presents with complaining of pill stuck in her throat. Patient states she had anterior cervical discectomy 5 days ago and tried to take the omeprazole 3 days ago that feels is stuck in her throat since then. Patient denies vomiting complaining of problem with swallowing like her usual. Review of Systems Review of Systems Constitutional: Denies fever or chills [] Eyes: Denies change in visual acuity, redness, or eye pain [] HENT: Denies nasal congestion or sore throat [] Respiratory: Denies cough or shortness of breath [] Cardiovascular: No additional information not addressed in HPI [] GI: Denies abdominal pain, nausea, vomiting, bloody stools or diarrhea [] : Denies dysuria or hematuria [] Musculoskeletal: Denies back pain or joint pain [] Integument: Denies rash or skin lesions [] Neurologic: Denies headache, focal weakness or sensory changes [] Endocrine: Denies polyuria or polydipsia [] All other systems were reviewed and found to be within normal limits, except as documented in this note. Current Medications Current Medications Current Medications Medications (Trade) Dose Ordered Sig/Jessica Start Time Stop Time Status Last Admin Dose Admin Iohexol (Omnipaque 300 Mg/ml) 75 ml 1X ONCE 12/26/17 11:15 12/26/17 11:19 DC Lidocaine HCl (Viscous Lidocaine) 15 ml 1X ONCE 12/26/17 11:15 12/26/17 11:19 DC 12/26/17 11:24 15 ML Morphine Sulfate (Morphine 4mg Syringe) 4 mg 1X ONCE 12/26/17 13:00 12/26/17 13:01 UNV Allergies Allergies Allergies Coded Allergies Type Severity Reaction Last Updated Verified baclofen Allergy Severe 12/26/17 Yes adhesive Allergy Intermediate 12/02/17 Yes adhesive tape Allergy Intermediate 12/02/17 Yes latex Allergy Intermediate 12/02/17 Yes propoxyphene Allergy Intermediate 12/02/17 Yes Physical Exam Physical Exam Constitutional: Well developed, well nourished, mild distress, non-toxic appearance. [] HENT: Normocephalic, atraumatic, bilateral external ears normal, oropharynx moist, no oral exudates, nose normal. [] Eyes: PERRLA, EOMI, conjunctiva normal, no discharge. [] Neck: Anterior neck dressing with clean surgical wound with mild edema without sign of hematoma, decreased range of motion, no tenderness, supple, no stridor. [] Cardiovascular:Heart rate regular rhythm, no murmur [] Lungs & Thorax: Bilateral breath sounds clear to auscultation [] Abdomen: Bowel sounds normal, soft, no tenderness, no masses, no pulsatile masses. [] Skin: Warm, dry, no erythema, no rash. [] Back: No tenderness, no CVA tenderness. [] Extremities: No tenderness, no cyanosis, no clubbing, ROM intact, no edema. [] Neurologic: Alert and oriented X 3, normal motor function, normal sensory function, no focal deficits noted. [] Psychologic: Affect normal, judgement normal, mood normal. [] EKG EKG [] Radiology/Procedures Radiology/[place] [address] IMAGING REPORT Signed PATIENT: ROSEANN SANTOS ACCOUNT: [id number] : 1965 LOCATION: ER AGE: 52 SEX: F EXAM STATUS: PRE ER ORD. PHYSICIAN: FRANDY LILLY MD REASON: neck surgery, foreign body sensation, possible hematoma PROCEDURE: CT SOFT TISSUE NECK WO CONTRST PQRS Compliance Statement: One or more of the following individualized dose reduction techniques were utilized for this examination: 1. Automated exposure control 2. Adjustment of the mA and/or kV according to patient size 3. Use of iterative reconstruction technique CT SOFT TISSUE NECK WO CONTRST Clinical Indication: neck fusion a few days ago, feels like there's something stuck in her throat. Comparison: None. TECHNIQUE: Helical CT imaging of the soft tissues of the neck is performed without IV contrast. Findings: Mastoid air cells are aerated. The parapharyngeal fat planes are preserved. ACDF of C4-C6. Interbody spacers at the disc spaces. There are bubbles of air in the soft tissues anterior to the hardware. A bubble of air is seen superior to the hardware anterior to the C3 vertebral body. The prevertebral soft tissues from C2-C6 are thickened. Thickening may be postsurgical. There is a prevertebral ill-defined pocket of air and fluid at the level of the hyoid bone. This produces narrowing of the upper left piriform sinus. Pocket measures approximately 2.4 cm AP by 3.3 cm transverse. The lung apices are clear. There is probable 1.5 cm right thyroid nodule. Consider outpatient thyroid ultrasound if not previously performed. There is no cervical adenopathy. IMPRESSION: ACDF of C4-C6. There is prevertebral soft tissue thickening from C2-C6 that may be postsurgical. Poorly defined pocket of air and fluid at the level of the hyoid bone narrows the upper left piriform sinus. Short-term follow-up imaging may be useful. Electronically signed by: Nghia Schulz MD (12/26/2017 2:45 PM) [facility] DICTATED AND SIGNED BY: NGHIA SCHULZ MD DATE: 12/26/17 6475 Course & Med Decision Making Course & Med Decision Making Pertinent Imaging studies reviewed. (See chart for details) Evaluation of patient in ER showed 52-year-old male patient with complaining of dysfunction after neck surgery. Patient was able to swallow without problem with mild edema of surgical area with unremarkable CT of soft tissue neck except for possible small collection of fluid and a and recommendation of repeat CT in few days. Dr. Tafoya patient neurosurgeon was informed at 1518 and agreed with plan of discharging patient with follow-up with his office next week. Patient had history of hypertension and didn't take her pressure medication today with elevation of blood pressure in ER that improved with clonidine 0.1 mg. Dragon Disclaimer Dragon Disclaimer This electronic medical record was generated, in whole or in part, using a voice recognition dictation system. Departure Departure: Impression: Primary Impression: Dysphasia Additional Impressions: Postoperative edema Uncontrolled hypertension History of cervical discectomy Disposition: 01 HOME, SELF-CARE (at 1526) Condition: IMPROVED Referrals: RHIANNA STACY DO (PCP) Patient Instructions: Dysphagia, Pain Relief Preoperatively and Postoperatively Additional Instructions: Drink plenty of liquids Follow-up with your neurosurgeon physician in 2-3 days Return to ER if not getting better Continue home pain medication and blood pressure medication Scripts [Viscus Lidoaine 2%] No Conflict Check 5 ML SWSW PRN for PAIN, #1 BOT Prov: FRANDY LILLY MD 12/26/17 Problem Qualifiers FRANDY LILLY MD Dec 26, 2017 13:35
--- NOTE | 2017-12-26 14:48 | RAD ---
PQRS Compliance Statement: One or more of the following individualized dose reduction techniques were utilized for this examination: 1. Automated exposure control 2. Adjustment of the mA and/or kV according to patient size 3. Use of iterative reconstruction technique CT SOFT TISSUE NECK WO CONTRST Clinical Indication: neck fusion a few days ago, feels like there's something stuck in her throat. Comparison: None. TECHNIQUE: Helical CT imaging of the soft tissues of the neck is performed without IV contrast. Findings: Mastoid air cells are aerated. The parapharyngeal fat planes are preserved. ACDF of C4-C6. Interbody spacers at the disc spaces. There are bubbles of air in the soft tissues anterior to the hardware. A bubble of air is seen superior to the hardware anterior to the C3 vertebral body. The prevertebral soft tissues from C2-C6 are thickened. Thickening may be postsurgical. There is a prevertebral ill-defined pocket of air and fluid at the level of the hyoid bone. This produces narrowing of the upper left piriform sinus. Pocket measures approximately 2.4 cm AP by 3.3 cm transverse. The lung apices are clear. There is probable 1.5 cm right thyroid nodule. Consider outpatient thyroid ultrasound if not previously performed. There is no cervical adenopathy. IMPRESSION: ACDF of C4-C6. There is prevertebral soft tissue thickening from C2-C6 that may be postsurgical. Poorly defined pocket of air and fluid at the level of the hyoid bone narrows the upper left piriform sinus. Short-term follow-up imaging may be useful. Electronically signed by: Nghia Schulz MD (12/26/2017 2:45 PM) [facility]
[2017-12-26] MEDS ORDERED: cloNIDine HCL 0.1 MG TABLET PO ONE (15:15)
[2017-12-26] MEDS ORDERED: LIDOCAINE 2% SWSW (15:30)
[2017-12-26 15:50] VITALS: BP 166/100
== END 2017-12-26 15:50 | disposition home or self-care (01) ==
LOC: ER 10:33
DX: R47.02 Dysphasia (principal); R60.1 Generalized edema; I10 Essential (primary) hypertension; I48.91 Unspecified atrial fibrillation; Z98.890 Other specified postprocedural states; Z88.8 Allergy status to other drugs, medicaments and biological substances; Z91.040 Latex allergy status
CPT/HCPCS: 70490; 96372; 99284; J2270

== ENCOUNTER → 2018-02-23 | Outpatient (CLI) | payer OTHER ==
[~2018-02-23] MED LIST changes: +HYDR-2145 PO; -HYDR-2762 PO; +HYDR-2765 PO; -HYDR-2766 PO; +HYDR-2769 PO; -HYDR25TA9 PO; +LIDOCAINE 2% SWSW; +LOSA100T14 PO; -LOSA100T7 PO
--- NOTE | 2018-02-23 18:30 | RAD ---
Indication: Follow-up post surgery TECHNIQUE: 2 views of the cervical spine COMPARISON: None FINDINGS: Status post anterior fusion at C4-C6 with discectomy changes. Atlantoaxial joint interval is preserved. The hardware is intact. No compression deformities. Facet joints are in normal anatomic alignment. Visualized lung apices are clear. IMPRESSION: Status post anterior fusion from C4-C6. No malalignment. Electronically signed by: Navin Gibson DO (02/23/2018 6:27 PM) [facility]
== END | disposition home or self-care (01) ==
LOC: DXRAD 17:49
PROVIDERS: ATTEND Neurological Surgery
DX: Z09 Encounter for follow-up examination after completed treatment for conditions other than malignant neoplasm (principal); Z98.1 Arthrodesis status
CPT/HCPCS: 72040

== ENCOUNTER 2018-12-11 17:32 | Emergency (ER) | payer OTHER ==
[~2018-12-11] VITALS: Ht 152.4 cm; Wt 139.2 kg
[~2018-12-11 17:32] MED LIST changes: -AMLO10TA6 PO; +AMLO10TA8 PO; +MONT10TA80 PO; -MONT10TA9 PO; +OMEP40CA45 PO; -OMEP40CA5 PO; -TIZA4TAB PO; +TIZA4TAB2 PO
[2018-12-11] MEDS ORDERED: 0.9 % SODIUM CHLORIDE 10 ML DISP.SYRIN. IV PRN (17:45)
[2018-12-11] MEDS ORDERED: NALOXONE 0.4 MG/ML VIAL. IV ONE (17:45)
[2018-12-11] MEDS ORDERED: IV NORMAL SALINE 1,000ML 1,000 ML IV ONE (17:45)
--- NOTE | 2018-12-11 17:47 | PHYS DOC ---
Adult General Chief Complaint Chief Complaint: MULTIPLE COMPLAINTS HPI HPI 53-year-old female presents to the emergency department via EMS for altered mental status, generalized weakness. Patient was last known normal 2 days ago. She states she's had nausea, vomiting had difficulty keeping oral intake. She states she feels dehydrated. Patient takes chronic narcotic medications. She is mildly hypotensive upon EMS arrival however that is improved. She takes morphine twice a day as well as breakthrough pain medication. She complains of left upper chest pain. Patient denies any chest pain, shortness of breath. She denies any headache or visual changes. (LEANN DUONG MD) Review of Systems Review of Systems Constitutional: Denies fever or chills [] Eyes: Denies change in visual acuity, redness, or eye pain [] Respiratory: Denies cough or shortness of breath [] Cardiovascular: No additional information not addressed in HPI [] GI: + abdominal pain, nausea, vomiting, no bloody stools or diarrhea [] : Denies dysuria or hematuria [] Musculoskeletal: left arm pain Integument: Denies rash or skin lesions [] Neurologic: Denies headache, left upper ext weakness All other systems were reviewed and found to be within normal limits, except as documented in this note. (LEANN DUONG MD) Current Medications Current Medications Current Medications Medications (Trade) Dose Ordered Sig/Jessica Start Time Stop Time Status Last Admin Dose Admin Ceftriaxone Sodium 1 gm/ Sodium Chloride 50 ml @ 100 mls/hr 1X ONCE 12/11/18 17:45 12/11/18 18:14 Sodium Chloride 1,000 ml @ 1,000 mls/hr 1X ONCE 12/11/18 17:45 12/11/18 18:44 Sodium Chloride (Normal Saline Flush) 10 ml QSHIFT PRN 12/11/18 17:45 (LEANN DUONG MD) Allergies Allergies Allergies Coded Allergies Type Severity Reaction Last Updated Verified acetaminophen Allergy Unknown 12/11/18 Yes baclofen Allergy Unknown 12/11/18 Yes propoxyphene Allergy Unknown 12/11/18 Yes (LEANN DUONG MD) Physical Exam Physical Exam Constitutional: obese, altered mental status HENT: Normocephalic, atraumatic, bilateral external ears normal, oropharynx moist, no oral exudates, nose normal. [] Eyes: PERRLA, EOMI, conjunctiva normal, no discharge. [] Neck: Normal range of motion, no tenderness, supple, no stridor. [] Cardiovascular:Heart rate regular rhythm, no murmur [] Lungs & Thorax: Bilateral breath sounds clear to auscultation [] Abdomen: Bowel sounds normal, soft, obese, no tenderness, no masses, no pulsatile masses. [] Skin: Warm, dry, no erythema, no rash. [] Back: No tenderness, no CVA tenderness. [] Extremities: No tenderness, no cyanosis, no clubbing, ROM intact, no edema. [] Neurologic: Alert and oriented X 2, no focal deficits noted. [] (LEANN DUONG MD) Current Patient Data Vital Signs Vital Signs Date Time Temp Pulse Resp B/P (MAP) Pulse Ox O2 Delivery O2 Flow Rate FiO2 12/11/18 17:32 98.1 74 20 109/45 (66) 85 Room Air Lab Results Laboratory Tests Test 12/11/18 17:40 Glucose (Fingerstick) 81 mg/dL (70-99) (LEANN DUONG MD) EKG EKG [] (LEANN DUONG MD) Radiology/Procedures Radiology/Procedures [] (LEANN DUONG MD) Impressions: PORTABLE CHEST 1V History: Altered mental status, sepsis Comparison: None. Findings: Single view of the chest is submitted. There is prominent infiltrate of the left hemithorax other than some sparing of the apex, also some infiltrate of the right perihilar region and medial right lung base. No pneumothorax is identified. Pericardial cardiac silhouette is somewhat poorly distinguished on the left due to infiltrate. May be degree of volume loss left hemithorax. IMPRESSION: 1. There is prominent infiltrate of the left hemithorax, component of lobar collapse possible as there is appearance of volume loss on the left. There is also right perihilar and medial right base infiltrate. Electronically signed by: Rosina Rosen MD (12/11/2018 7:42 PM) [facility] DICTATED AND SIGNED BY: ROSINA ROSEN MD DATE: 12/11/181941 CC: SHARON AVILA DO; LEANN DUONG MD; RHIANNA STACY DO ~ CT HEAD WO CONTRAST History: Altered mental status Comparison: None. Technique: Noncontrast CT imaging was performed of the head. Exposure: One or more of the following individualized dose reduction techniques were utilized for this examination: 1. Automated exposure control 2. Adjustment of the mA and/or kV according to patient size 3. Use of iterative reconstruction technique. Findings: There is no evidence of acute intracranial hemorrhage. There are some areas of loss of definition of the tan-white differentiation of the temporal lobes bilaterally. There is no midline shift. Ventricular size is within normal limits. Visualized paranasal sinuses and mastoid air cells are aerated. Impression: 1. There is appearance of some loss of tan-white differentiation of the temporal lobes bilaterally scanning be due to underlying edema. Sequela of encephalitis including herpes encephalitis would be in the differential considerations if these are true findings, sequela of ischemia considered atypical given the pattern of involvement. Findings discussed with Dr. Avila at 12/11/2018 7:37 PM. FOR INTERNAL CODING PURPOSES RESULT CODE: (C) Electronically signed by: Rosina Rosen MD (12/11/2018 7:39 PM) [facility] DICTATED AND SIGNED BY: ROSINA ROSEN MD DATE: 12/11/181938 CC: SHARON AVILA DO; LEANN DUONG MD; RHIANNA STACY DO ~ (SHARON AVILA DO) Course & Med Decision Making Course & Med Decision Making Pertinent Labs and Imaging studies reviewed. (See chart for details) []53-year-old female presents to the emergency department via EMS for altered mental status, generalized weakness. Patient was last known normal 2 days ago. She states she's had nausea, vomiting had difficulty keeping oral intake. She states she feels dehydrated. Patient takes chronic narcotic medications. She is mildly hypotensive upon EMS arrival however that is improved. She takes morphine twice a day as well as breakthrough pain medication. She complains of left upper chest pain. Patient denies any chest pain, shortness of breath. She denies any headache or visual changes. (LEANN DUONG MD) Course & Med Decision Making The patient's chest x-ray is significant for bilateral pneumonia. See official read for details. Lactic acid and blood cultures have been ordered. The patient was given Rocephin by my colleague. The patient's head CT also has some abnormal findings as she could have some bilateral edema. See official read for more details. Patient's labs are significant for an elevated creatinine of 4.8. I discussed transfer with the patient and she would like to go to [facility]. Family is in agreement. I spoke with Dr. Calderon and he has accepted the patient for transfer and admission. The patient has been given Rocephin, azithromycin, and acyclovir. I spoke with , neurologist and she has recommended MRI and possibly lumbar puncture at [facility]. She did advise that we go ahead and start acyclovir in case her cerebral edema could be herpes encephalitis. We had difficulty obtaining all the patient's blood work. Blood cultures were not obtained prior to the antibiotics. Her lactic acid is also pending. The patient was given a total of 2 L of normal saline prior to transfer. She had no urine output. A Trotter catheter was placed. 48 minutes of critical care time was spent on this patient exclusive of other billable procedures. (SHARON AVILA DO) Dragon Disclaimer Dragon Disclaimer This electronic medical record was generated, in whole or in part, using a voice recognition dictation system. (LEANN DUONG MD) Date and Time of Assessment Date: Dec 11, 2018 Time: 19:07 (SHARON AVILA DO) Vital Signs Vital Signs Vital Signs Date Time Temp Pulse Resp B/P (MAP) Pulse Ox O2 Delivery O2 Flow Rate FiO2 12/11/18 17:35 98.1 74 20 85 Room Air 12/11/18 17:32 109/45 (66) Temperature Source: Oral (SHARON AVILA DO) Respirations Respiratory Effort: Normal Respiratory Pattern: Normal (SHARON AVILA DO) Cardiovascular Pulse Rhythm: Regular HEART: Nml rate, reg. rhythm (SHARON AVILA DO) Lung Sounds Breath Sounds: Coarse (SHARON AVILA DO) Capillary Refill Capillary Refill: Rt Hand < 3 seconds (SHARON AVILA DO) Peripheral Pulse Pulse Location: Monitor Pulse Strength: Normal (2+) Pulse Assessment Method: Monitor (SHARON AVILA DO) Integumentary Skin: Warm, Dry Skin Moisture: Dry Skin Color: no edema, no erythema Fingernail Color: WNL (SHARON AVILA DO) Fluid Challenge: Is the fluid challenge complet: Yes IBW Target Volume Used: No BMI > 30: Yes Blood Culture TIme: 22:10 Time Antibiotics Given: 18:30 (SHARON AVILA DO) Departure Departure: Impression: Primary Impression: Pneumonia Additional Impressions: Sepsis Cerebral edema Altered mental status Medication overdose Acute kidney failure Disposition: [facility] Admitting Physician: Philippe Calderon (SHARON AVILA DO) Condition: GUARDED Problem Qualifiers Primary Impression: Pneumonia Pneumonia type: due to unspecified organism Laterality: bilateral Lung location: lower lobe of lung Qualified Codes: J18.1 - Lobar pneumonia, unspecified organism Additional Impressions: Sepsis Sepsis type: sepsis due to unspecified organism Sepsis acute organ dysfunction status: with acute organ dysfunction Severe sepsis acute organ dysfunction type: acute renal failure Acute renal failure type: unspecified Severe sepsis shock status: without septic shock Qualified Codes: A41.9 - Sepsis, unspecified organism; R65.20 - Severe sepsis without septic shock; N17.9 - Acute kidney failure, unspecified Altered mental status Altered mental status type: disorientation Qualified Codes: R41.0 - Disorientation, unspecified Medication overdose Encounter type: initial encounter Injury intent: accidental or unintentional Qualified Codes: T50.901A - Poisoning by unspecified drugs, medicaments and biological substances, accidental (unintentional), initial encounter Acute kidney failure Acute renal failure type: unspecified Qualified Codes: N17.9 - Acute kidney failure, unspecified LEANN DUONG MD Dec 11, 2018 17:47 SHARON AVILA DO Dec 11, 2018 20:08
[2018-12-11] MEDS ORDERED: cefTRIAXone SODIUM 1 GM VIAL ONE (17:51)
[2018-12-11] MEDS ORDERED: IV NORMAL SALINE 50ML 50 ML ONE (17:51)
[2018-12-11 18:39] LABS: BGAS PH 7.33 (7.35-7.45)
[2018-12-11 19:15] LABS: ALBUMIN 2.8 g/dL (3.4-5.0); ALBUMIN/GLOBULIN RATIO 0.7 (1.0-1.7); CALCIUM 8.4 mg/dL (8.5-10.1); CREATININE 4.8 mg/dL (0.6-1.0); GFR 11.4; POTASSIUM 4.2 mmol/L (3.5-5.1); TOTAL BILIRUBIN 0.5 mg/dL (0.2-1.0); TOTAL PROTEIN 6.9 g/dL (6.4-8.2)
--- NOTE | 2018-12-11 19:42 | RAD ---
CT HEAD WO CONTRAST History: Altered mental status Comparison: None. Technique: Noncontrast CT imaging was performed of the head. Exposure: One or more of the following individualized dose reduction techniques were utilized for this examination: 1. Automated exposure control 2. Adjustment of the mA and/or kV according to patient size 3. Use of iterative reconstruction technique. Findings: There is no evidence of acute intracranial hemorrhage. There are some areas of loss of definition of the tan-white differentiation of the temporal lobes bilaterally. There is no midline shift. Ventricular size is within normal limits. Visualized paranasal sinuses and mastoid air cells are aerated. Impression: 1. There is appearance of some loss of tan-white differentiation of the temporal lobes bilaterally scanning be due to underlying edema. Sequela of encephalitis including herpes encephalitis would be in the differential considerations if these are true findings, sequela of ischemia considered atypical given the pattern of involvement. Findings discussed with Dr. Morelos at 12/11/2018 7:37 PM. FOR INTERNAL CODING PURPOSES RESULT CODE: (C) Electronically signed by: Gilbert Iverson MD (12/11/2018 7:39 PM) [facility]
--- NOTE | 2018-12-11 19:45 | RAD ---
PORTABLE CHEST 1V History: Altered mental status, sepsis Comparison: None. Findings: Single view of the chest is submitted. There is prominent infiltrate of the left hemithorax other than some sparing of the apex, also some infiltrate of the right perihilar region and medial right lung base. No pneumothorax is identified. Pericardial cardiac silhouette is somewhat poorly distinguished on the left due to infiltrate. May be degree of volume loss left hemithorax. IMPRESSION: 1. There is prominent infiltrate of the left hemithorax, component of lobar collapse possible as there is appearance of volume loss on the left. There is also right perihilar and medial right base infiltrate. Electronically signed by: Gilbert Iverson MD (12/11/2018 7:42 PM) [facility]
[2018-12-11] MEDS ORDERED: IV NORMAL SALINE 1,000ML 1,000 ML IV SCH (20:15)
[2018-12-11] MEDS ORDERED: ACYCLOVIR SODIUM IV STA (20:51)
[2018-12-11] MEDS ORDERED: DEXTROSE 5% IV STA (20:51)
[2018-12-11] MEDS ORDERED: IV DEXTROSE 5% 100 ML IV ONE (21:28)
[2018-12-11] MEDS ORDERED: ACYCLOVIR SODIUM 500 MG/10 ML VIAL IV ONE (21:28)
[2018-12-11 21:37] LABS: BASO # 0.1 x10^3/uL (0.0-0.2); BASO % 1 % (0-3); EOS # 0.2 x10^3/uL (0.0-0.7); EOS % 1 % (0-3); HEMATOCRIT 37.6 % (36.0-47.0); HEMOGLOBIN 11.9 g/dL (12.0-15.5); LYMPH # 1.4 x10^3/uL (1.0-4.8); LYMPH % 8 % (24-48); MEAN CORPUSCULAR HEMOGLOBIN 28 pg (25-35); MEAN CORPUSCULAR HGB CONC 32 g/dL (31-37); MEAN CORPUSCULAR VOLUME 88 fL (79-100); MONO # 1.4 x10^3/uL (0.0-1.1); MONO % 8 % (0-9); NEUT # 14.2 x10^3uL (1.8-7.7); NEUT % 82 % (31-73); PLATELET COUNT 306 x10^3/uL (140-400); RED BLOOD COUNT 4.25 x10^6/uL (3.50-5.40); RED CELL DISTRIBUTION WIDTH 18.5 % (11.5-14.5); WHITE BLOOD COUNT 17.2 x10^3/uL (4.0-11.0)
[2018-12-11] MEDS ORDERED: AZITHROMYCIN 500 MG in IV NORMAL SALINE 250ML 250 ML IV ONE (22:00)
[2018-12-11 22:41] VITALS: BP 119/81
[2018-12-11] MEDS ORDERED: AZITHROMYCIN 500 MG VIAL. IV ONE (22:51)
[2018-12-11] MEDS ORDERED: IV NORMAL SALINE 250ML 250 ML ONE (22:51)
[2018-12-11 22:58] LABS: BACTERIA,URINE FEW /HPF (0-FEW); BILIRUBIN,URINE NEG (NEG); CLARITY,URINE HAZY; COLOR,URINE YELLOW; GLUCOSE,URINE NEG (NEG); HYALINE CASTS, URINE OCC /HPF; NITRITE,URINE NEG (NEG); RBC,URINE 0 /HPF (0-2); SQUAMOUS EPITHELIAL CELL,UR OCC /LPF; UROBILINOGEN,URINE 0.2 mg/dL (0.2 mg/dL)
[2018-12-11 23:38] LABS: % EOS 2 % (0-5); % SEGS 84 % (35-66)
[2018-12-11 23:39] LABS: % LYMPHS 8 % (24-48); % MONOS 6 % (0-10)
[2018-12-11 23:40] LABS: ANISOCYTOSIS SLIGHT; PLT ESTIMATE ADEQUATE (ADEQUATE); POLYCHROMASIA SLIGHT
--- NOTE | 2018-12-12 07:36 | EKG ---
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
== END 2018-12-11 23:07 | disposition short-term general hospital (02) ==
LOC: EDBD 17:32 → ER 17:32 → MERGE 17:32 → ER 23:07
DX: R65.21 Severe sepsis with septic shock (principal); N17.9 Acute kidney failure, unspecified; T40.2X1A Poisoning by other opioids, accidental (unintentional), initial encounter; J18.1 Lobar pneumonia, unspecified organism; G93.6 Cerebral edema; R41.82 Altered mental status, unspecified; Z88.6 Allergy status to analgesic agent; Z88.8 Allergy status to other drugs, medicaments and biological substances; Y92.89 Other specified places as the place of occurrence of the external cause
CPT/HCPCS: 36415; 51702; 70450; 71045; 80053; 81001; 82803; 82947; 83605; 84484; 85007; 85025; 85379; 87040; 93005; 96365; 96366; 96368; 96375; 99291; J0133; J0456; J0696; J2310; J7050; J7030

== ENCOUNTER 2019-01-19 12:29 | Emergency (ER) | payer MEDICARE, OTHER ==
[~2019-01-19] VITALS: Ht 152.4 cm; Wt 139.2 kg
--- NOTE | 2019-01-19 13:51 | RAD ---
EXAM: Chest, single view. HISTORY: Chest pain. COMPARISON: 10/06/2016 FINDINGS: A frontal view of the chest obtained. There is diffuse central predominant increased interstitial opacity. There is no consolidation, pleural effusion or pneumothorax. The heart is normal in size. There is cervical spinal fusion instrumentation. IMPRESSION: Diffuse central predominant interstitial infiltrate. No consolidation is seen. Electronically signed by: Manuela Vazquez MD (01/19/2019 1:48 PM) [place] [id number]
--- NOTE | 2019-01-19 14:13 | PHYS DOC ---
Past History Past Medical History: A-Fib, CHF, COPD, Fibromyalgia, GERD, High Cholesterol, Hypertension, NC, Renal Disease, Other Additional Past Medical Histor: CHRONIC PAIN; malignaunt hyperthermia Past Surgical History: , Hysterectomy, Oophorectomy Alcohol Use: None Drug Use: None The HEART Score for CP Pts HEART Score for Chest Pain: HEART Score for Chest Pain Response (Comments) Value History Moderately Suspicious 1 ECG Normal 0 Age >45 - < 65 1 Risk Factors 1 or 2 Risk Factors 1 Troponin < Normal Limit 0 Total 3 Risk Factors: Risk Factors: DM, Current or recent (<one month) smoker, HTN, HLP, family history of CAD, obesity. Risk Scores: Score 0 - 3: 2.5% MACE over next 6 weeks - Discharge Home Score 4 - 6: 20.3% MACE over next 6 weeks - Admit for Clinical Observation Score 7 - 10: 72.7% MACE over next 6 weeks - Early Invasive Strategies Adult General Chief Complaint Chief Complaint: CHEST PAIN HPI HPI 53-year-old female presents with right-sided chest pain. He has been having this pain since yesterday. It is worse with exertion and improves with rest, but does not go away. It is intermittent pain she describes it as a burning pain from the central chest along underneath her right breast. She has no rash or change in skin. She feels mildly short of breath, but denies diaphoresis. Patient has history of atrial fibrillation, rate controlled. She has never had a heart attack. She denies recent cough, fever or chills. Review of Systems Review of Systems Constitutional: Denies fever or chills [] Eyes: Denies change in visual acuity, redness, or eye pain [] HENT: Denies nasal congestion or sore throat [] Respiratory: shortness of breath [] Cardiovascular: No additional information not addressed in HPI [] GI: Denies abdominal pain, nausea, vomiting, bloody stools or diarrhea [] : Denies dysuria or hematuria [] Musculoskeletal: Denies back pain or joint pain [] Integument: Denies rash or skin lesions [] Neurologic: Denies headache, focal weakness or sensory changes [] Endocrine: Denies polyuria or polydipsia [] All other systems were reviewed and found to be within normal limits, except as documented in this note. Allergies Allergies Allergies Coded Allergies Type Severity Reaction Last Updated Verified baclofen Allergy Severe 01/19/19 Yes adhesive Allergy Intermediate 01/19/19 Yes adhesive tape Allergy Intermediate 01/19/19 Yes latex Allergy Intermediate 01/19/19 Yes propoxyphene Allergy Intermediate 01/19/19 Yes acetaminophen Allergy Unknown 01/19/19 Yes pineapple Allergy Unknown 01/19/19 Yes shrimp Allergy Unknown 01/19/19 Yes watermelon Allergy Unknown 01/19/19 Yes Physical Exam Physical Exam Constitutional: Well developed, morbidly obese, well nourished, no acute distress, non-toxic appearance. [] HENT: Normocephalic, atraumatic, bilateral external ears normal, oropharynx moist, no oral exudates, nose normal. [] Eyes: PERRLA, EOMI, conjunctiva normal, no discharge. [] Neck: Normal range of motion, no tenderness, supple, no stridor. [] Cardiovascular:Heart rate regular rhythm, no murmur [] Lungs & Thorax: Bilateral breath sounds clear to auscultation [] Abdomen: Bowel sounds normal, soft, no tenderness, no masses, no pulsatile masses. [] Skin: Warm, dry, no erythema, no rash. [] Back: No tenderness, no CVA tenderness. [] Extremities: No tenderness, no cyanosis, no clubbing, ROM intact, no edema. [] Neurologic: Alert and oriented X 3, normal motor function, normal sensory function, no focal deficits noted. [] Psychologic: Affect normal, judgement normal, mood normal. [] Current Patient Data Vital Signs Vital Signs Date Time Temp Pulse Resp B/P (MAP) Pulse Ox O2 Delivery O2 Flow Rate FiO2 01/19/19 12:58 97.4 71 13 99 Nasal Cannula 3.0 EKG EKG [] Radiology/Procedures Radiology/Procedures [] Impressions: EXAM: Chest, single view. HISTORY: Chest pain. COMPARISON: 10/06/2016 FINDINGS: A frontal view of the chest obtained. There is diffuse central predominant increased interstitial opacity. There is no consolidation, pleural effusion or pneumothorax. The heart is normal in size. There is cervical spinal fusion instrumentation. IMPRESSION: Diffuse central predominant interstitial infiltrate. No consolidation is seen. Electronically signed by: Manuela Vazquez MD (01/19/2019 1:48 PM) [place] [id number] DICTATED AND SIGNED BY: MANUELA VAZQUEZ MD DATE: 01/19/19 1348 CC: SHARON AVILA DO; MANUELA CARIAS MD ~ Course & Med Decision Making Course & Med Decision Making Pertinent Labs and Imaging studies reviewed. (See chart for details) The patient's labs are unremarkable. Her chest x-ray continues to show some interstitial infiltrate. This is likely over inflammation from her recent pneumonia. Her EKG is unremarkable. Her troponin is negative. The patient's heart is: Is 3. I believe she can be safely discharged. She also could be coming down with a viral illness. Stable for discharge at this time. [] Dragon Disclaimer Dragon Disclaimer This electronic medical record was generated, in whole or in part, using a voice recognition dictation system. Departure Departure: Impression: Primary Impression: Chest pain Additional Impression: Interstitial lung disorders Disposition: 01 HOME, SELF-CARE Condition: STABLE Referrals: MANUELA CARIAS MD (PCP) Patient Instructions: Chest Pain (Nonspecific), Kyyp-my-Yugl Problem Qualifiers SHARON AVILA DO Jan 19, 2019 14:13
[2019-01-19 14:20] LABS: BASO % 1 % (0-3); EOS # 0.3 x10^3/uL (0.0-0.7); EOS % 3 % (0-3); HEMATOCRIT 35.4 % (36.0-47.0); LYMPH # 1.5 x10^3/uL (1.0-4.8); LYMPH % 18 % (24-48); MEAN CORPUSCULAR HEMOGLOBIN 28 pg (25-35); MEAN CORPUSCULAR HGB CONC 31 g/dL (31-37); MEAN CORPUSCULAR VOLUME 90 fL (79-100); MONO # 0.6 x10^3/uL (0.0-1.1); MONO % 7 % (0-9); NEUT # 5.8 x10^3uL (1.8-7.7); NEUT % 71 % (31-73); PLATELET COUNT 227 x10^3/uL (140-400); RED BLOOD COUNT 3.95 x10^6/uL (3.50-5.40); RED CELL DISTRIBUTION WIDTH 16.3 % (11.5-14.5); WHITE BLOOD COUNT 8.1 x10^3/uL (4.0-11.0)
--- NOTE | 2019-01-19 14:33 | EKG ---
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
[2019-01-19 16:05] LABS: ALBUMIN 2.9 g/dL (3.4-5.0); ALBUMIN/GLOBULIN RATIO 0.6 (1.0-1.7); CALCIUM 8.5 mg/dL (8.5-10.1); CREATININE 3.3 mg/dL (0.6-1.0); GFR 17.6; POTASSIUM 5.1 mmol/L (3.5-5.1); TOTAL BILIRUBIN 0.3 mg/dL (0.2-1.0); TOTAL PROTEIN 7.4 g/dL (6.4-8.2)
[2019-01-19 16:48] VITALS: BP 96/61
== END 2019-01-19 17:00 | disposition home or self-care (01) ==
LOC: ER 12:29
DX: R07.89 Other chest pain (principal); J70.4 Drug-induced interstitial lung disorders, unspecified; I48.91 Unspecified atrial fibrillation; I11.0 Hypertensive heart disease with heart failure; I50.9 Heart failure, unspecified; M79.7 Fibromyalgia; K21.9 Gastro-esophageal reflux disease without esophagitis; E78.00 Pure hypercholesterolemia, unspecified; I25.2 Old myocardial infarction; G89.29 Other chronic pain; Z88.8 Allergy status to other drugs, medicaments and biological substances; Z91.040 Latex allergy status; Z91.013 Allergy to seafood; Z91.018 Allergy to other foods; Z88.6 Allergy status to analgesic agent
CPT/HCPCS: 36415; 71045; 80053; 83880; 84484; 85025; 93005; 99285-25

== ENCOUNTER 2019-01-22 09:15 | Inpatient (IN) | payer MEDICARE ==
[~2019-01-22] VITALS: Ht 152.4 cm; Wt 139.5 kg
[2019-01-22] MEDS ORDERED: IV NORMAL SALINE 500ML 500 ML IV ONE (10:00)
[2019-01-22 10:13] LABS: BILIRUBIN,URINE NEG (NEG); CLARITY,URINE CLOUDY; COLOR,URINE YELLOW; GLUCOSE,URINE NEG (NEG); NITRITE,URINE NEG (NEG); UROBILINOGEN,URINE 0.2 mg/dL (0.2 mg/dL)
[2019-01-22 10:14] LABS: BACTERIA,URINE MOD /HPF (0-FEW); SQUAMOUS EPITHELIAL CELL,UR MANY /LPF
--- NOTE | 2019-01-22 10:38 | RAD ---
PQRS Compliance Statement: One or more of the following individualized dose reduction techniques were utilized for this examination: 1. Automated exposure control 2. Adjustment of the mA and/or kV according to patient size 3. Use of iterative reconstruction technique CT head without contrast 01/22/2019 9:57 AM INDICATION: Weakness, hallucinations and unable to ambulate. COMPARISON: CT head 12/11/2018 TECHNIQUE: Multiple axial CT images of the head were obtained from skull base through the vertex without intravenous contrast. FINDINGS: Head: Ventricles, sulci and basal cisterns are within normal limits. There is no hydrocephalus. Hernandez-white matter differentiation is normal. There is no acute intracranial hemorrhage. There is no mass, mass effect or midline shift. Posterior fossa is normal in appearance. Visualized portions of the orbits are normal. Paranasal sinuses are well aerated. Mastoid air cells are well aerated. Scalp and calvaria are normal. IMPRESSION: No acute intracranial hemorrhage. Electronically signed by: Bernarda Baker MD (01/22/2019 10:35 AM) [facility]
--- NOTE | 2019-01-22 10:39 | RAD ---
CHEST AP ONLY 01/22/2019 9:57 AM INDICATION: Weakness, cough COMPARISON: 01/19/2019 TECHNIQUE: Portable frontal view of the chest is provided. FINDINGS: The cardiomediastinal silhouette is similar in appearance. Mild pulmonary vascular congestion. No significant pleural effusions or pneumothorax. Lungs are otherwise clear. Anterior cervical discectomy and fusion hardware is partially profiled. IMPRESSION: Mild pulmonary vascular congestion may be accentuated by motion artifact. Electronically signed by: Bernarda Baker MD (01/22/2019 10:36 AM) [facility]
[2019-01-22 11:36] LABS: ALBUMIN/GLOBULIN RATIO 0.6 (1.0-1.7); CREATININE 4.2 mg/dL (0.6-1.0); GFR 13.3; POTASSIUM 5.6 mmol/L (3.5-5.1); TOTAL BILIRUBIN 0.4 mg/dL (0.2-1.0); TOTAL PROTEIN 7.8 g/dL (6.4-8.2)
[2019-01-22 11:49] LABS: BASO % 1 % (0-3); EOS # 0.2 x10^3/uL (0.0-0.7); EOS % 3 % (0-3); HEMATOCRIT 33.8 % (36.0-47.0); HEMOGLOBIN 10.8 g/dL (12.0-15.5); LYMPH % 15 % (24-48); MEAN CORPUSCULAR HEMOGLOBIN 28 pg (25-35); MEAN CORPUSCULAR HGB CONC 32 g/dL (31-37); MEAN CORPUSCULAR VOLUME 89 fL (79-100); MONO # 0.7 x10^3/uL (0.0-1.1); MONO % 11 % (0-9); NEUT # 4.5 x10^3uL (1.8-7.7); NEUT % 70 % (31-73); PLATELET COUNT 266 x10^3/uL (140-400); RED CELL DISTRIBUTION WIDTH 15.6 % (11.5-14.5); WHITE BLOOD COUNT 6.4 x10^3/uL (4.0-11.0)
[2019-01-22] MEDS ORDERED: SODIUM POLYSTYRENE SULFONATE 15 GM/60 ML ORAL.SUSP. PO ONE (12:15)
[2019-01-22] MEDS ORDERED: IV NORMAL SALINE 1,000ML 1,000 ML IV ONE (12:15)
[2019-01-22] MEDS ORDERED: CALCIUM GLUCONATE 1,000 MG/10 ML VIAL IV ONE (12:15)
[2019-01-22] MEDS ORDERED: SODIUM BICARBONATE 50 MEQ/50 ML VIAL. IV ONE (12:15)
--- NOTE | 2019-01-22 12:30 | PHYS DOC ---
Past History Past Medical History: A-Fib, CHF, COPD, Fibromyalgia, GERD, High Cholesterol, Hypertension, DC, Pneumonia, Renal Disease, Renal Failure, Other Additional Past Medical Histor: CHRONIC PAIN; malignaunt hyperthermia Past Surgical History: , Hysterectomy, Oophorectomy Alcohol Use: None Drug Use: None Adult General Chief Complaint Chief Complaint: MULTIPLE COMPLAINTS [facility] HPI Patient is a 53-year-old female brought in by eminence with generalized weakness as well as hallucination she is hearing voices intermittently. She says that she has been taking baclofen and that happened last time she took that as well. She also had pneumonia back in November she is taking 3 L of nasal cannula oxygen ever since trying to recover from that her cough is actually pretty mild she thinks that is getting better really no significant shortness of breath she was seen in the emergency room for chest pain last week. Troponin which were nega tive at that time Patient has had decreased by mouth intake is feeling very tired and weak overall no diarrhea decreased urine output mild left hip left flank left lower abdominal pain she has had that before she thinks it's going from her hip discomfort she has a history of chronic pain she has fibromyalgia she has multiple polypharmacy to include buprenorphine patch morphine tablets [place] and gabapentin tizanidine baclofen Review of Systems Review of Systems Constitutional: Denies fever or chills [] Eyes: Denies change in visual acuity, redness, or eye pain [] HENT: Denies nasal congestion or sore throat [] Respiratory: Denies cough or shortness of breath [] Cardiovascular: No additional information not addressed in HPI [] GI: Denies abdominal pain, nausea, vomiting, bloody stools or diarrhea [] : Denies dysuria or hematuria [] Musculoskeletal: Denies back pain or joint pain [] Integument: Denies rash or skin lesions [] Neurologic: Denies headache, focal weakness or sensory changes [] Endocrine: Denies polyuria or polydipsia [] All other systems were reviewed and found to be within normal limits, except as documented in this note. Current Medications Current Medications Current Medications Medications (Trade) Dose Ordered Sig/Jessica Start Time Stop Time Status Last Admin Dose Admin Calcium Gluconate 1,000 mg 1X ONCE 01/22/19 12:15 01/22/19 12:16 DC Sodium Polystyrene Sulfonate (Sps 15 Gm/60 ml Suspension) 30 gm 1X ONCE 01/22/19 12:15 01/22/19 12:16 DC Sodium Bicarbonate (Sodium Bicarbonate) 50 meq 1X ONCE 01/22/19 12:15 01/22/19 12:16 DC Sodium Chloride 1,000 ml @ 1,000 mls/hr 1X ONCE 01/22/19 12:15 01/22/19 13:14 Allergies Allergies Allergies Coded Allergies Type Severity Reaction Last Updated Verified baclofen Allergy Severe 01/19/19 Yes adhesive Allergy Intermediate 01/19/19 Yes adhesive tape Allergy Intermediate 01/19/19 Yes latex Allergy Intermediate 01/19/19 Yes propoxyphene Allergy Intermediate 01/19/19 Yes acetaminophen Allergy Unknown 01/19/19 Yes pineapple Allergy Unknown 01/19/19 Yes shrimp Allergy Unknown 01/19/19 Yes watermelon Allergy Unknown 01/19/19 Yes Physical Exam Physical Exam Constitutional: Well developed, morbidly obese HENT: Normocephalic, atraumatic, bilateral external ears normal, oropharynx moist, thrush present, nose normal. [] Eyes: PERRLA, EOMI, conjunctiva normal, no discharge. [] Neck: Normal range of motion, no tenderness, supple, no stridor. [] Cardiovascular:Heart rate regular rhythm, no murmur [] Lungs & Thorax: Bilateral breath sounds clear to auscultation [] Abdomen: Bowel sounds normal, soft, mild llq tenderness, no masses, no pulsatile masses. [] Skin: Warm, dry, no erythema, no rash. [] Back mild paraspinous ttp left. Extremities: No tenderness, no cyanosis, no clubbing, ROM intact,2 plus edema Neurologic: Alert and oriented X 3, normal motor function, normal sensory function, no focal deficits noted. []Requires assistance to transfer from the paramedics to the bed Psychologic: Affect normal, judgement normal, mood normal. []Patient reports hallucinations but does not appear to be actively responding to internal stimuli Current Patient Data Vital Signs Vital Signs Date Time Temp Pulse Resp B/P (MAP) Pulse Ox O2 Delivery O2 Flow Rate FiO2 01/22/19 09:15 97.9 76 30 98 Nasal Cannula 3.0 Lab Results Laboratory Tests Test 01/22/19 09:50 01/22/19 10:59 01/22/19 11:32 Urine Collection Type Unknown Urine Color Yellow Urine Clarity Cloudy Urine pH 5.0 Urine Specific [place] >=1.030 Urine Protein Neg (NEG-TRACE) Urine Glucose (UA) Neg mg/dL (NEG) Urine Ketones (Stick) Neg mg/dL (NEG) Urine Blood Neg (NEG) Urine Nitrite Neg (NEG) Urine Bilirubin Neg (NEG) Urine Urobilinogen Dipstick 0.2 mg/dL (0.2 mg/dL) Urine Leukocyte Esterase Neg (NEG) Urine RBC 1-2 /HPF (0-2) Urine WBC 1-4 /HPF (0-4) Urine Squamous Epithelial Cells Many /LPF Urine Bacteria Mod /HPF (0-FEW) Sodium Level 131 mmol/L (136-145) L Potassium Level 5.6 mmol/L (3.5-5.1) H Chloride Level 96 mmol/L (98-107) L Carbon Dioxide Level 25 mmol/L (21-32) Anion Gap 10 (6-14) Blood Urea Nitrogen 50 mg/dL (7-20) H Creatinine 4.2 mg/dL (0.6-1.0) H Estimated GFR (Cockcroft-Gault) 13.3 BUN/Creatinine Ratio 12 (6-20) Glucose Level 102 mg/dL (70-99) H Calcium Level 8.0 mg/dL (8.5-10.1) L Magnesium Level 2.0 mg/dL (1.8-2.4) Total Bilirubin 0.4 mg/dL (0.2-1.0) Aspartate Amino Transferase (AST) 24 U/L (15-37) Alanine Aminotransferase (ALT) 14 U/L (14-59) Alkaline Phosphatase 128 U/L (46-116) H Troponin I Quantitative < 0.017 ng/mL (0-0.055) QE-Erb-I-Type Natriuretic Peptide 250 pg/mL (0-124) H Total Protein 7.8 g/dL (6.4-8.2) Albumin 3.0 g/dL (3.4-5.0) L Albumin/Globulin Ratio 0.6 (1.0-1.7) L Lipase 80 U/L (73-393) White Blood Count 6.4 x10^3/uL (4.0-11.0) Red Blood Count 3.80 x10^6/uL (3.50-5.40) Hemoglobin 10.8 g/dL (12.0-15.5) L Hematocrit 33.8 % (36.0-47.0) L Mean Corpuscular Volume 89 fL (79-100) Mean Corpuscular Hemoglobin 28 pg (25-35) Mean Corpuscular Hemoglobin Concent 32 g/dL (31-37) Red Cell Distribution Width 15.6 % (11.5-14.5) H Platelet Count 266 x10^3/uL (140-400) Neutrophils (%) (Auto) 70 % (31-73) Lymphocytes (%) (Auto) 15 % (24-48) L Monocytes (%) (Auto) 11 % (0-9) H Eosinophils (%) (Auto) 3 % (0-3) Basophils (%) (Auto) 1 % (0-3) Neutrophils # (Auto) 4.5 x10^3uL (1.8-7.7) Lymphocytes # (Auto) 1.0 x10^3/uL (1.0-4.8) Monocytes # (Auto) 0.7 x10^3/uL (0.0-1.1) Eosinophils # (Auto) 0.2 x10^3/uL (0.0-0.7) Basophils # (Auto) 0.0 x10^3/uL (0.0-0.2) Lactic Acid Level 0.5 mmol/L (0.4-2.0) EKG EKG [] IMPRESSION: No acute intracranial hemorrhage. Electronically signed by: Louann Shaw MD (01/22/2019 10:35 AM) [facility] EKG normal sinus rhythm rate of 72 QTC 497 no STEMI interpreted by me time of encounter no peaked T waves Radiology/Procedures Radiology/Procedures []ofiled. IMPRESSION: Mild pulmonary vascular congestion may be accentuated by motion artifact. Electronically signed by: Louann Shaw MD (01/22/2019 10:36 AM) [facility] DICTATED AND SIGNED BY: LOUANN SHAW MD DATE: 01/22/19 1036 CC: LAURIE CARIAS MD; JAZMYN ALFONSO MD ~ Impressions: thoracolumbar scoliosis. IMPRESSION: 1. No evidence of urinary tract calculus or obstruction. 2. Mild bilateral nonspecific inguinal lymph node enlargement. 3. Moderate retained stool through the colon compatible with constipation. Electronically signed by: Margarito Solano MD (01/22/2019 12:31 PM) [facility] Course & Med Decision Making Course & Med Decision Making Pertinent Labs and Imaging studies reviewed. (See chart for details) 53-year-old history of morbid obesity hypertension polypharmacy fibromyalgia recent renal failure and pneumonia who is currently presenting with generalized weakness and some intermittent hallucinations found to have []Renal failure mild to moderate hyperkalemia hyponatremia UA dirty came from commode likely not proper UTI. In summary this 53-year-old morbidly obese female with a recent history of pneumonia presenting with acute renal flare I suspect this is related at least in part to her polypharmacy and decreased by mouth intake. I discussed with Dr. CALDERON plan to admit here at [facility] for IV fluids and observation. I did initially initiate treatment for hyperkalemia withCALCIUM bicarbonate Kayexalate IV fluids in the emergency room potassium 5.6 overall mild no obvious EKG changes Dragon Disclaimer Dragon Disclaimer This electronic medical record was generated, in whole or in part, using a voice recognition dictation system. Departure Departure: Impression: Primary Impression: Acute renal failure Additional Impression: Hyperkalemia Disposition: 09 ADMITTED INPATIENT Admitting Physician: Philippe Calderon Condition: STABLE Referrals: LAURIE CARIAS MD (PCP) Problem Qualifiers JAZMYN ALFONSO MD Jan 22, 2019 12:30
--- NOTE | 2019-01-22 12:34 | RAD ---
CT ABDOMEN PELVIS WO CONTRAST Indication: Left flank pain. Exposure: One or more of the following individualized dose reduction techniques were utilized for this examination: 1. Automated exposure control 2. Adjustment of the mA and/or kV according to patient size 3. Use of iterative reconstruction technique. Comparison: None are available. Technique: No intravenous contrast given. No oral contrast per request. Findings: Evaluation of solid viscera, bowel and vasculature is compromised by the noncontrast technique. Mild atelectasis in the lung bases. Liver and spleen are unremarkable. Pancreas unremarkable. No evidence of adrenal mass. Kidneys demonstrate no hydronephrosis. No evidence of urinary tract calculus. Gallbladder mildly distended, no evidence of calcified stone. Aorta is nonaneurysmal. Mildly enlarged inguinal lymph nodes bilaterally measuring up to 12 mm short axis. No pathologic mesenteric or retroperitoneal lymph nodes are seen. Postsurgical changes at the stomach. No significant small bowel distention. Moderate retained stool throughout the colon. No evidence of colonic wall thickening. The appendix appears normal. No significant pneumoperitoneum or ascites. Urinary bladder demonstrates no significant wall thickening. No evidence of pelvic mass. Postsurgical changes at the lumbosacral junction. Degenerative spondylosis. No evidence of aggressive bone destruction. Mild thoracolumbar scoliosis. IMPRESSION: 1. No evidence of urinary tract calculus or obstruction. 2. Mild bilateral nonspecific inguinal lymph node enlargement. 3. Moderate retained stool through the colon compatible with constipation. Electronically signed by: Margarito Solano MD (01/22/2019 12:31 PM) [facility]
[2019-01-22] MEDS: IV NORMAL SALINE 1,000ML 1,000 ML IV SCH ×2 (13:15→23:15)
[2019-01-22] MEDS ORDERED: TIZA4TAB2 PO (16:35)
[2019-01-22] MEDS ORDERED: ALEN70TA6 PO (16:35)
[2019-01-22] MEDS ORDERED: GABA800T5 PO (16:35)
[2019-01-22] MEDS ORDERED: GABA600T7 PO (16:35)
[2019-01-22] MEDS ORDERED: HYDR200T5 PO (16:35)
[2019-01-22] MEDS ORDERED: MORP-15 PO (16:35)
[2019-01-22 17:02] VITALS: BP 115/71
[2019-01-22] MEDS ORDERED: tiZANidine 4 MG TABLET. PO PRN (17:15)
[2019-01-22] MEDS ORDERED: GABAPENTIN 400 MG CAPSULE. PO PRN (17:30)
[2019-01-22] MEDS: HYDROcodone/APAP 7.5/325MG 1 TAB TABLET PO PRN (17:34)
[2019-01-22 19:17] LABS: CALCIUM 8.2 mg/dL (8.5-10.1); CREATININE 3.3 mg/dL (0.6-1.0); GFR 17.6; POTASSIUM 4.8 mmol/L (3.5-5.1)
--- NOTE | 2019-01-22 20:00 | NUR ---
The patient, ROSEANN SANTOS, 53 y/o, F admitted by DEACON LAM MD, was given written information regarding hospital policies, unit procedures and contact persons. Patient admitted prior to my shift. Went over plan of care with patient. Patient voiced understanding. Call light within reach. [facility] Valuables were checked and left at bedside.
[2019-01-22] MEDS: MORPHINE ER 15 MG TABLET.ER PO SCH (20:14)
[2019-01-22] MEDS: SOTALOL 80 MG TABLET. PO SCH (20:14)
[2019-01-22] MEDS: GABAPENTIN 400 MG CAPSULE. PO SCH (20:15)
--- NOTE | 2019-01-22 20:38 | HP ---
ADMIT DATE: 01/22/2019 HISTORY OF PRESENT ILLNESS: The patient is a 53-year-old -L[place] female patient who was brought to the Emergency Room by ambulance for generalized weakness as well as hallucination. She began hearing voices intermittently. She stated that she has been taking baclofen and that happened last time when she took it. She also had pneumonia back in November. She is on 3 liters of oxygen by nasal cannula ever since, trying to recover from that. Her cough is actually pretty mild. She thinks that she is getting better with no significant shortness of breath. She was in the Emergency Room for chest pain last week. Troponin was negative at that time. The patient decreased intake orally, is feeling very tired and weak overall. No diarrhea. She noted that she has decreased urine output, mild left hip, flank and left lower abdominal pain. She does have history of chronic pain from fibromyalgia and multiple polypharmacy to include hydromorphone, buprenorphine patch, morphine tablets, [place], gabapentin, tizanidine, and baclofen. She was evaluated in the Emergency Room and her lab work showed that she has hyponatremia, hyperkalemia and acute kidney injury with a BUN of 50, creatinine of 4.2. Her urinalysis was essentially unremarkable. PAST MEDICAL HISTORY: Significant for hypertension, atrial fibrillation, chronic kidney disease, morbid obesity, obstructive sleep apnea, bronchial asthma, osteoarthritis, fibromyalgia. She also had episodes of malignant hyperthermia. She has also severe pain in her left neck radiating to her left upper extremity. PAST SURGICAL HISTORY: Significant for gastric bypass surgery in 2004. At that time, she lost about 135 pounds. She underwent , laparoscopic total abdominal hysterectomy, bilateral salpingo-oophorectomy, back surgery twice. She also had left knee arthroscopic surgery. ALLERGIES: She is allergic to DARVOCET, LATEX, ADHESIVE TAPES and ADHESIVES in general. FAMILY HISTORY: She has 4 brothers and 4 sisters, all of her siblings have hypertension. Her father is alive at age of 87 and is known to have hypertension and diabetes. Mother is alive at age of 86 and is known to have hypertension. SOCIAL HISTORY: She is and lives on her own. She has 1 son who lives with her for 1 week and with his father 1 week. She never smoked, does not drink alcohol or recreational drugs. 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 She is currently on disability. MEDICATIONS: She is currently on following medications: She is on hydroxychloroquine sulfate 200 mg once a day, tizanidine 4 mg every 8 hours, sotalol 120 mg twice a day, hydrocodone/APAP 7.5/325 one tablet every 6 hours, morphine sulfate 50 mg extended release 1 twice a day, gabapentin 400 mg 3 times a day, gabapentin 800 mg at bedtime, duloxetine 60 mg daily, furosemide 40 mg daily, montelukast sodium 10 mg at bedtime, omeprazole 40 mg once a day, estradiol 2 mg daily, cholecalciferol 5000 international unit once a day, and alendronate sodium 70 mg once a week. PHYSICAL EXAMINATION: GENERAL: On arrival to the Emergency Room, she looked well and was clearly in no apparent respiratory distress, slightly pale, but no jaundice, cyanosis, or thyromegaly. No jugular venous distention. No limb edema. VITAL SIGNS: Her heart rate was 75, blood pressure was 105/44, temperature was 97.8, respiratory rate was 30 and oxygen saturation was 98% on 3 liters of oxygen. HEAD, EYES, EARS, NOSE AND THROAT: Normocephalic, atraumatic. NECK: Supple. HEART: Showed normal first and second heart sounds with no gallop or murmur. CHEST: Clear to auscultation. No crepitation or rhonchi. ABDOMEN: Distended, soft, nontender. NEUROLOGIC: She is awake, alert, responding appropriately. All cranial nerves intact. EXTREMITIES: She moves extremities without difficulty, although she is now unable to walk. LABORATORY DATA: While in the Emergency Room, she had lab work done, which showed a white cell count 6400, hemoglobin 11, hematocrit 33, MCV 89 and platelet count 266,000. Her chemistry showed a serum sodium 131, potassium 5.6, chloride 96, bicarbonate 25, anion gap of 10, BUN 50, creatinine 4.2, estimated GFR was ____ mL per minute. Her glucose 102. Lactic acid was only 0.5, calcium was 8, magnesium 2. Total bilirubin, AST, ALT were normal. Alkaline phosphatase slightly elevated. Her total protein was 7.8, albumin 3. Lipase was 80. Urinalysis was essentially unremarkable. Her CT scan of the head showed that the ventricles, sulci and basal cisterns are within normal limits. There is no hydrocephalus. Rodriguez and white matter differentiation is normal. There is no acute intracranial hemorrhage. There is no mass, mass effect or midline shift. Posterior fossa is normal in appearance. Visualized portions of the orbits are normal. Paranasal sinuses are well aerated. Mastoid air cells are well aerated. Scalp and calvaria are normal. Her chest x-ray showed mild pulmonary vascular congestion, may be accentuated by motion artifact. CT scan of the abdomen and pelvis without contrast showed that the patient has no evidence of urinary tract calculus or obstruction. Mild bilateral nonspecific inguinal lymph node enlargement, moderate retained stool throughout the colon compatible with constipation. The patient was admitted with acute on chronic kidney injury. Her most recent lab works available for comparison showed that her creatinine actually was 0.9 on 12/10/2018. Other medical problems include hyponatremia, hyperkalemia. The plan is to hold all her nephrotoxic medications. In particular, I will hold her Lasix. Continue with aggressive rehydration and follow her labs closely. I will add CK to make sure that rhabdomyolysis is not contributing and decide on further management accordingly. DEACON LAM MD DR: SHRADDHA/alberta JOB#: [id number] / [id number]
[2019-01-22] MEDS ORDERED: MONTELUKAST 10 MG TABLET. PO SCH (21:00)
[2019-01-22 22:50] VITALS: BP 110/69
[2019-01-23] MEDS: HYDROcodone/APAP 7.5/325MG 1 TAB TABLET PO PRN (02:22)
--- NOTE | 2019-01-23 03:52 | EKG ---
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
[2019-01-23] MEDS: IV NORMAL SALINE 1,000ML 1,000 ML IV SCH (04:42)
[2019-01-23 05:01] VITALS: BP 132/79
--- NOTE | 2019-01-23 06:24 | NUR ---
Patient started screaming out, went to check on patient and patient kept repeating "we serve a holy god" over and over. When asked what was wrong patient said nothing was wrong. Patient denies pain at this time. Call light within reach. Will continue to monitor.
[2019-01-23] MEDS: GABAPENTIN 400 MG CAPSULE. PO SCH (08:36)
[2019-01-23] MEDS: MORPHINE ER 15 MG TABLET.ER PO SCH (08:36)
[2019-01-23] MEDS: SOTALOL 80 MG TABLET. PO SCH (08:37)
[2019-01-23] MEDS ORDERED: PANTOPRAZOLE 40 MG TABLET. PO SCH (09:00)
[2019-01-23] MEDS ORDERED: DULoxetine HCL 60 MG CAPSULE.DR PO SCH (09:00)
[2019-01-23] MEDS ORDERED: HYDROXYCHLOROQUINE 200 MG TABLET PO SCH (09:00)
[2019-01-23] MEDS ORDERED: ESTRADIOL 1 MG TABLET PO SCH (09:00)
[2019-01-23 10:15] LABS: HEMATOCRIT 32.9 % (36.0-47.0); HEMOGLOBIN 10.5 g/dL (12.0-15.5); RED BLOOD COUNT 3.73 x10^6/uL (3.50-5.40); RED CELL DISTRIBUTION WIDTH 15.5 % (11.5-14.5); WHITE BLOOD COUNT 5.1 x10^3/uL (4.0-11.0)
[2019-01-23 10:28] LABS: ALBUMIN 2.7 g/dL (3.4-5.0); ALBUMIN/GLOBULIN RATIO 0.6 (1.0-1.7); CALCIUM 7.9 mg/dL (8.5-10.1); GFR 31.3; TOTAL BILIRUBIN 0.4 mg/dL (0.2-1.0); TOTAL PROTEIN 7.1 g/dL (6.4-8.2)
--- NOTE | 2019-01-23 10:44 | NUR ---
NURSING NOTE PT WAS IN ROOM THIS AM UPON ASSESSMENT AND MEDICATION ADMINISTRATION. PT COMPLAINS OF PAIN 09/21. MORPHINE SCHEDULED FOR PAIN. PT IS A&O THIS AM. PHYSICAL THERAPY GOT PT OUT OF BED THIS AM AND UP TO CHAIR. PT HAS BRUISING ON HER ARMS FROM IV INFILTRATE RUE. PT HAS BEEN CALM, COOPERATIVE AND PLEASANT THUS FAR. WILL CONTINUE TO MONITOR. CHENG JANSEN.
[2019-01-23 11:06] VITALS: BP 101/73
--- NOTE | 2019-01-23 14:35 | NUR ---
NURSING NOTE DISCHARGE PT TRANSFERRED TO [facility] AT 1435 FOR CONTINUATION OF CARE. REPORT CALLED TO [facility]. NO COMPLICATIONS. CHENG JANSEN.
--- NOTE | 2019-01-23 21:27 | DS ---
DATE OF DISCHARGE: 01/23/2019 HOSPITAL COURSE: This is a 53-year-old -Indian female patient who was brought to the emergency room by ambulance with a complaint of generalized weakness as well as hallucination. She began hearing voices intermittently. She stated that she has been taking baclofen that happened last time when she took it. She also had pneumonia back in November. She is on 3 liters of oxygen by nasal cannula ever since, trying to recover from that. Her cough is actually pretty mild. She thinks that she is getting better with no significant shortness of breath. She was in the emergency room for chest pain last week. Troponins were negative at that time. The patient decreased intake, has been feeling very tired and weak overall. However, she denied any diarrhea. She noted that she has decreased urine output, mild left hip and flank and left lower abdominal pain. Does have history of chronic pain from fibromyalgia and multiple polypharmacy to include hydromorphone, buprenorphine patch, morphine tablets, [place], gabapentin, tizanidine, and baclofen. She was evaluated in the emergency room. Her lab work showed that she has hyponatremia, hyperkalemia and acute kidney injury with a BUN of 50, creatinine 4.2. Her urinalysis was essentially unremarkable. She was started on IV fluid and continued all other medications. She has had a CT scan of the abdomen and pelvis which showed no evidence of obstruction or hydronephrosis or renal calculi and she actually did very well. Her lab work has improved. Her serum sodium went up from 131-141, potassium down from 5.6-24 and BUN from 50-32 and creatinine from 4.2-2. Apparently, the patient is out of network and therefore we contacted the transfer center at [facility] and the patient was accepted as a transfer to [facility] and [facility]. PHYSICAL EXAMINATION: GENERAL: When I saw her today, she was resting slightly propped up in bed, in no apparent respiratory distress. No pallor, jaundice, cyanosis or thyromegaly. No jugular venous distention. No limb edema. VITAL SIGNS: Her heart rate was 79, blood pressure was 101/73, temperature was 99, respiratory rate was 22 and oxygen saturation was 99% on 3 liters of oxygen. HEAD, EYES, EARS, NOSE AND THROAT: Normocephalic, atraumatic. NECK: Supple. HEART: Showed normal first and second heart sounds. No gallop, rub or murmur. CHEST: Clear to auscultation. No crepitation or rhonchi. ABDOMEN: Distended, soft, nontender. NEUROLOGIC: She was awake, alert, responding appropriately. All cranial nerves intact. She moved extremities without difficulty. Her intake was 3690, output was 1350. LABORATORY WORK: Today showed serum sodium is up to 141, potassium 4, chloride 104, bicarbonate 31, anion gap of 6, BUN 32, creatinine 2, estimated GFR was 31 mL per minute. Her glucose 160, calcium was 7.9. Total bilirubin, AST, ALT, alkaline phosphatase were normal. CK was only 161. Total protein was 7.1, albumin was 2.7. Her white cell count was 5100, hemoglobin 10.5, hematocrit 33, MCV 88, and platelet count 261,000. Urinalysis was essentially unremarkable. Her CT scan of the head was unremarkable with no acute intracranial hemorrhage. Chest x-ray with mild pulmonary vascular congestion, may be accentuated by motion artifact and a CT scan of the abdomen and pelvis showed no evidence of urinary tract calculus or obstruction, mild bilateral nonspecific inguinal lymph node enlargement, has moderate retained stool throughout the colon compatible with constipation. DISCHARGE MEDICATIONS: She was discharged to [facility] to continue on following medications: Alendronate sodium 70 mg once a week, cholecalciferol for vitamin D3 50,000 units once a week, duloxetine 60 mg once a day, estradiol 2 mg daily, furosemide 40 mg once a day, gabapentin 400 mg 3 times a day, gabapentin 800 mg daily p.r.n. for pain, hydrocodone/acetaminophen 7.5/325 one tablet every 6 hours, hydroxychloroquine 200 mg daily, montelukast sodium for Singulair 10 mg at bedtime, morphine sulfate extended release 15 mg twice a day, omeprazole 40 mg once a day, sotalol 120 mg twice a day and tizanidine 4 mg every 8 hours. FINAL DISCHARGE DIAGNOSES: Acute renal failure, probably multifactorial, resolved. There is no evidence of obstruction. She is not on any nephrotoxic medication and she is responding very well to IV rehydration. Other medical problems include hypertension, atrial fibrillation, chronic kidney disease, morbid obesity, obstructive sleep apnea, bronchial asthma, osteoarthritis and fibromyalgia. DEACON LAM MD DR: Kristine JOB#: [id number] / [id number]
[2019-01-29] MEDS ORDERED: NON FORMULARY ITEM (Alendronate Sodium 1 TAB) PO SCH (09:00)
[2019-01-29] MEDS ORDERED: CHOLECALCIFEROL (VITAMIN D3) 50,000 UNIT CAPSULE PO SCH (09:00)
== END 2019-01-23 14:37 | disposition short-term general hospital (02) | DRG 640 ==
LOC: ER 09:15 → 1 SOUTH 14:26
PROVIDERS: ADMIT Internal Medicine; ATTEND Internal Medicine
DX: E87.1 Hypo-osmolality and hyponatremia (principal); N17.0 Acute kidney failure with tubular necrosis; Z68.44 Body mass index [BMI] 60.0-69.9, adult; I13.0 Hypertensive heart and chronic kidney disease with heart failure and stage 1 through stage 4 chronic kidney disease, or unspecified chronic kidney disease; E78.00 Pure hypercholesterolemia, unspecified; I48.91 Unspecified atrial fibrillation; J44.9 Chronic obstructive pulmonary disease, unspecified; I50.9 Heart failure, unspecified; M79.7 Fibromyalgia; K21.9 Gastro-esophageal reflux disease without esophagitis; E87.5 Hyperkalemia; E66.01 Morbid (severe) obesity due to excess calories; M19.90 Unspecified osteoarthritis, unspecified site; N18.9 Chronic kidney disease, unspecified; G47.33 Obstructive sleep apnea (adult) (pediatric); G89.29 Other chronic pain; Z90.710 Acquired absence of both cervix and uterus; Z98.891 History of uterine scar from previous surgery; Z88.8 Allergy status to other drugs, medicaments and biological substances; Z88.6 Allergy status to analgesic agent; Z91.040 Latex allergy status; Z91.013 Allergy to seafood; Z98.84 Bariatric surgery status; Z83.3 Family history of diabetes mellitus; Z82.49 Family history of ischemic heart disease and other diseases of the circulatory system
CPT/HCPCS: 36415; 51702; 70450; 71045; 74176; 80048; 80053; 81001; 82550; 83605; 83690; 83735; 83880; 84484; 85025; 85027; 87040; 87086; 93005; 96361; 96374; 96375; J0610; J7040; 99285-25; J7030

== ENCOUNTER → 2020-01-22 | Outpatient (CLI) | payer MEDICARE ==
[~2020-01-22] MED LIST changes: +ALEN70TA60 PO; +AMLO-187 PO; -AMLO10TA8 PO; +GABA600T7 PO; +GABA800T5 PO; +HYDR200T5 PO; +MORP-15 PO
--- NOTE | 2020-01-26 10:37 | RAD ---
DATE: 01/22/2020 2:00 PM EXAM: DIGITAL SCREEN BILAT W/CAD HISTORY: Screening COMPARISON: 07/08/2018 Bilateral full field craniocaudal and mediolateral oblique images were obtained using digital technique. This study was interpreted with the benefit of Computerized Aided Detection (CAD). FINDINGS: Breast Density: SCATTERED The breast parenchyma shows scattered fibroglandular densities. Breast parenchyma level B No suspicious masses, microcalcifications or architectural distortion is present to suggest malignancy in either breast. The visualized axillae are unremarkable. IMPRESSION: No mammographic evidence of malignancy. BI-RADS CATEGORY: 1 NEGATIVE RECOMMENDED FOLLOW-UP: 12M 12 MONTH FOLLOW-UP Annual screening mammography is recommended, unless clinically indicated sooner based on symptoms or change in physical exam. PQRS compliance statement: Patient information was entered into a reminder system with a target due date for the next mammogram. Mammography is a sensitive method for finding small breast cancers, but it does not detect them all and is not a substitute for careful clinical examination. A negative mammogram does not negate a clinically suspicious finding and should not result in delay in biopsying a clinically suspicious abnormality. "Our facility is accredited by the [employer] Mammography Program."
== END ==
LOC: MAMMO 13:17
PROVIDERS: ATTEND Family Medicine
DX: Z12.31 Encounter for screening mammogram for malignant neoplasm of breast (principal)
CPT/HCPCS: 77067

== ENCOUNTER → 2020-10-28 | Outpatient (CLI) | payer MEDICARE ==
[~2020-10-28] MED LIST changes: -ALEN70TA60 PO; +ALEN70TA71 PO; +DOXY-181 PO; -DOXY100C14 PO; -OMEP40CA45 PO; +OMEP40CA7 PO
[2020-10-28 19:40] LABS: CALCIUM 8.8 mg/dL (8.5-10.1); GFR 31.1; POTASSIUM 4.2 mmol/L (3.5-5.1)
== END ==
LOC: LAB 16:28
DX: I50.32 Chronic diastolic (congestive) heart failure (principal); R07.9 Chest pain, unspecified; R60.0 Localized edema
CPT/HCPCS: 36415; 80048; 83880